=== PATIENT | female | born 1975 | race Caucasian/White ===

== ENCOUNTER 2017-12-03 09:47 | Outpatient (CLI) | payer MEDICAID, SELFPAY ==
[2017-12-03 10:44] LABS: Abs Immature Grans 0.02 k/cumm (0.0-0.09); Absolute Basophil Count 0.02 k/cumm (0.0-0.2); Absolute Eosinophil Count 0.42 k/cumm (0.0-0.7); Absolute Lymphocyte Count 1.51 k/cumm (1.2-3.4); Absolute Monocyte Count 0.43 k/cumm (0.11-0.7); Absolute Neutrophil Count 3.34 k/cumm (1.2-6.7); Basophils % 0.3; Eosinophils % 7.3; HCT 44.7 % (36.0-46.0); HGB 14.4 g/dL (12.0-15.5); Immature Grans % 0.3; Lymphocytes % 26.3; Mean Corp. HGB Concentration 32.2 g/dL (32.0-36.0); Mean Corpuscular Hemoglobin 29.4 pg (27.0-33.0); Mean Corpuscular Volume 91.4 fL (80-95); Mean Platelet Volume 11.4 fL (8.0-11.0); Monocytes % 7.5; Neutrophils % 58.3; Platelet Count 178 x1000/uL (130-400); RBC 4.89 m/cumm (4.00-5.20); RBC Distribution Width 14.1 % (11.7-14.6); White Blood Cell Count 5.74 k/cumm (4.4-10.8)
[2017-12-03 11:09] LABS: Iron 67 ug/dL (50-175); Total Iron Binding Capacity 318 ug/dL (250-450); Transferrin Sat 21 % (15-50)
[2017-12-03 11:11] LABS: ALT 36 U/L (12-78); AST 19 U/L (15-37); Albumin 3.4 g/dL (3.4-5.0); Alkaline Phosphatase 54 U/L (46-116); Anion Gap 5.2 mmol/L (3-11); BUN 16 mg/dL (7-18); Bilirubin, Total 1.1 mg/dL (0.2-1.0); CO2 29.8 mmol/L (21.0-32.0); CREATININE 0.92 mg/dL (0.55-1.02); Calcium 8.7 mg/dL (8.5-10.1); Chloride 104 mmol/L (98-107); Cholesterol 190 mg/dL (50-200); Ferritin 56 ng/mL (8-388); Glucose 93 mg/dL (70-100); HDL Cholesterol 53 mg/dL (40-60); LDL CHOLESTEROL 128 mg/dL (<100); Potassium 4.4 mmol/L (3.5-5.1); Sodium 139 mmol/L (136-145); T4 8.1 ug/dL (4.5-12.5); Total Protein 6.7 g/dL (6.4-8.2); Triglyceride 96 mg/dL (30-150)
== END 2017-12-03 10:07 ==
PROVIDERS: PCP Nurse Practitioner Family; Visit Provider Nurse Practitioner Family
DX: I10 Essential (primary) hypertension (principal); K74.60 Unspecified cirrhosis of liver; E03.9 Hypothyroidism, unspecified; E66.01 Morbid (severe) obesity due to excess calories
CPT/HCPCS: 36415; 80053; 80061; 83721; 82728; 83540; 83550; 84436; 84443; 85025

== ENCOUNTER 2017-12-25 11:37 | Emergency (ER) | payer MEDICAID, SELFPAY ==
[2017-12-25 11:47] VITALS: BP 146/105; PULSE 94; RESP 16; TEMP 36.8; O2SAT 97
[2017-12-25 12:21] LABS: Bilirubin Negative (Negative); Blood Large (Negative); Clarity Cloudy; Glucose Negative (Negative); Ketones Negative (Negative); Leukocyte Esterase Large (Negative); Nitrite Positive (Negative); Specific Gravity 1.025 (1.005-1.025); Urobilinogen 0.2 EU/dL (Up TO 0.2)
[2017-12-25 12:38] LABS: RBC >50 (0-2); WBC >50 HPF (0-5)
[2017-12-25 12:39] LABS: Bacteria Many HPF (Negative); C & S Indicated? Yes; Casts Negative LPF (Negative); Crystals Negative HPF (Negative); Epithelial Cells Negative HPF (Negative); Mucus Negative (Negative)
--- NOTE | 2017-12-25 14:33 | ED.GENADUL_ITS ---
Discharge Plan Disposition Patient Disposition: HOME Condition: Stable Discharge Details Chief Complaint: Urinary Clinical Impression: Urinary tract infection Primary Care Provider: Jasmine Mckinley ED Provider: Alfredito Phillips Home Meds and New Rx's Prescriptions: Continue acetaminophen 500 MG tablet 500 mg PO PRN PRNRF: 0 omeprazole 20 MG capsule,delayed release(DR/EC) 20 mg PO DAILY Qty: 90 RF: 3 venlafaxine 75 MG capsule,extended release 24hr 75 mg PO DAILY RF: 0 levothyroxine 125 MCG tablet 125 mcg PO DAILY Qty: 90 RF: 3 aripiprazole [Abilify] 5 MG tablet 5 mg PO DAILY RF: 0 Discharge Instructions Instructions: Urinary Tract Infection in Women (ED) Additional Instructions: Feel free to return to the emergency department for any new or rapidly worsening symptoms otherwise follow-up with your primary care provider if not improving towards the end of the antibiotics. You may continue to take acetaminophen as needed for discomfort. Referrals: Jasmine Mckinley [Primary Care Provider] - (as needed for reassessment) Discharge Data Discharge Date/Time-TO BE ENTERED AT DEPARTURE: 12/25/17 14:46 Medical Decision Making Patient presenting to the emergency department for chief complaint of UTI symptoms with flank pain for the past 3 days. Patient is afebrile and physical exam is otherwise unremarkable. staff psychologist initiated protocol for urinalysis which shows positive for UTI. Patient placed on Keflex 3 times daily for 7 days and Pyridium as needed for discomfort. Patient encouraged to return for any new or worsening signs or symptoms otherwise follow-up with primary care as needed Lab Data Lab results reviewed: Yes I reviewed the patient's lab results. HPI General Mode of arrival: ambulatory . Date/Time Provider Initiated Documentation: 12/25/17 11:52 . Limitations to Documentation: no limitations . Information obtained by: patient and RN notes reviewed . History of Present Illness 42 year old F presents to the emergency department with the chief complaint of UTI, described as moderate, with intensity rated at 4. Quality is described as aching, and is localized to the back. Patient started experiencing this day(s) (3) and it has been constant. No relieving factors improve symptom(s), Related Data Home Medications Medication Instructions Recorded Confirmed acetaminophen 500 mg PO PRN PRN 05/24/12 12/25/17 omeprazole 20 mg PO DAILY #90 tab-cap 06/23/16 12/25/17 venlafaxine 75 mg PO DAILY tab-cap 09/08/16 12/25/17 levothyroxine 125 mcg PO DAILY #90 tab-cap 09/22/16 12/25/17 aripiprazole [Abilify] 5 mg PO DAILY 10/08/16 12/25/17 Allergies Allergy/AdvReac Type Severity Reaction Status Date / Time ibuprofen AdvReac Unknown reacts w/ Unverified 12/25/17 11:53 antidepressant sulfamethoxazole AdvReac Unknown gi upset Unverified 12/25/17 11:53 [From Bactrim] trimethoprim [From Bactrim] AdvReac Unknown gi upset Unverified 12/25/17 11:53 tramadol AdvReac interfers Unverified 12/25/17 11:53 w/ effexor General Stated Complaint: Urinary HAL: 3 Review of Systems Constitutional Denies body ache(s), Denies chills, Denies fever(s), Denies malaise and Denies weakness Cardiovascular Denies chest pain Respiratory Reports system reviewed and no additional complaints, except as docu Gastrointestinal Denies abdominal pain, Reports nausea and Denies vomiting Genitourinary Reports as per HPI, Denies hematuria, Reports dysuria, Reports flank pain, Reports urinary urgency and Denies vaginal discharge Neurologic Denies confusion and Denies weakness Psychiatric Denies confusion PFSH Family History Mother Thyroid disorder Father No problems noted. Brother Mental disorder Brother No problems noted. Medical History Anxiety Biliary Cholic Depression Gluten intolerance Heartburn Hydradenitis Hypertension Hypothyroid Morbid obesity Sleep apnea Social History Smoking/Tobacco Use Status: Former Tobacco Use Surgical History Biopsy Duodenum (07/19/14) Cholecystectomy (09/13/14) Exam Const General: cooperative and no acute distress Orientation: alert, awake and oriented x3 Resp Effort & Inspection: normal respiratory effort and able to speak in complete sentences Auscultation: clear to auscultation bilaterally Cardio Rate: regular rate Rhythm: regular rhythm Heart Sounds: S1 normal and S2 normal GI Palpation: nontender Back/Spine/Pelvis Back: no CVA tenderness Neuro General: alert, awake and oriented x3 Extrem General: normal capillary refill Course Vital Signs Temperature 36.8 C 12/25/17 11:47 Pulse 94 H 12/25/17 11:47 Respiratory Rate 16 12/25/17 11:47 Blood Pressure 146/105 H 12/25/17 11:47 Pulse Oximetry 97 12/25/17 11:47 Temperature 36.8 C 12/25/17 11:47 Temperature Source Skin 12/25/17 11:47 Pulse 94 H 12/25/17 11:47 Respiratory Rate 16 12/25/17 11:47 Respiratory Effort Non-Labored 12/25/17 11:47 Blood Pressure 146/105 H 12/25/17 11:47 Blood Pressure Position Sitting 12/25/17 11:47 Pulse Oximetry 97 12/25/17 11:47 Oxygen Delivery Method Room Air 12/25/17 11:47 Oxygen Flow Rate 0 12/25/17 11:47 Lab/Test Results Lab/Test Results: 12/25/17 12:03 Urine - Reflex from Ua Urine Culture - Pending Laboratory Tests Range/Units 12/25/17 12:03 Urine Color (Yellow) [place] Urine Clarity Cloudy Urine pH (5-8) 7.0 Ur Specific [place] (1.005-1.025) 1.025 Urine Protein (Negative) mg/dL 100 H Urine Ketones (Negative) mg/dL Negative Urine Blood (Negative) Large H Urine Nitrite (Negative) Positive H Urine Bilirubin (Negative) Negative Urine Urobilinogen (Up TO 0.2) EU/dL 0.2 Ur Leukocyte Esterase (Negative) Large H Urine RBC (0-2) >50 H Urine WBC (0-5) HPF >50 Ur Epithelial Cells (Negative) HPF Negative Urine Crystals (Negative) HPF Negative Urine Bacteria (Negative) HPF Many Urine Casts (Negative) LPF Negative Urine Mucus (Negative) Negative Ur Culture Indicated? Yes Urine Glucose (Negative) mg/dL Negative
[2017-12-25 14:38] VITALS: BP 146/105; PULSE 94; RESP 16; TEMP 36.8; O2SAT 97
== END 2017-12-25 14:46 | disposition home or self-care (01) ==
PROVIDERS: Emergency Provider Nurse Practitioner Family; PCP Nurse Practitioner Family
DX: N39.0 Urinary tract infection, site not specified (principal); B96.20 Unspecified Escherichia coli [E. coli] as the cause of diseases classified elsewhere; I10 Essential (primary) hypertension
CPT/HCPCS: 87077; 99283; 81003; 81015; 87086; 87186

== ENCOUNTER 2018-04-28 10:44 | Emergency (ER) | payer MEDICAID, SELFPAY ==
--- NOTE | 2018-04-28 11:20 | NUR.NOTE ---
pt noticed that she had left shoulder pain 2-3 weeks ago and it hurts 5/10 when she moves it
[2018-04-28 11:21] VITALS: BP 133/87; PULSE 79; RESP 19; TEMP 37; O2SAT 98
--- NOTE | 2018-04-28 12:06 | ED.GENADUL_ITS ---
Discharge Plan Disposition Patient Disposition: HOME Condition: Stable Discharge Details Chief Complaint: Orthopedic Clinical Impression: Contusion of left shoulder, Left shoulder strain Primary Care Provider: Jasmine Mckinley ED Provider: Massiel Thompson Home Meds and New Rx's Prescriptions: Continued acetaminophen 500 MG tablet 500 mg PO PRN PRNRF: 0 omeprazole 20 MG capsule,delayed release(DR/EC) 20 mg PO DAILY Qty: 90 RF: 3 venlafaxine 75 MG capsule,extended release 24hr 75 mg PO DAILY RF: 0 levothyroxine 125 MCG tablet 125 mcg PO DAILY Qty: 90 RF: 3 aripiprazole [Abilify] 5 MG tablet 5 mg PO DAILY RF: 0 Discharge Instructions Instructions: Contusion in Adults (ED), Shoulder Sprain (ED) Additional Instructions: Rest and ice her left shoulder is much as possible. Take Tylenol and your muscle relaxer as needed and directed for pain. Follow-up with your primary care doctor in 1 week for reevaluation as needed. Follow-up with orthopedics if your pain persists or worsens. Return immediately to the emergency department any worsening or new concerning symptoms. Referrals: Rk Shabazz MD [ [facility] STAFF PHYSICIAN] - Discharge Data Discharge Date/Time-TO BE ENTERED AT DEPARTURE: 04/28/18 13:48 Discharge Physician: Massiel Thompson Medical Decision Making 42-year-old female presents with left clavicle and shoulder pain for the past 3 weeks after possible overuse injury at the gym, made worse after direct injury to shoulder after slip and fall on ice a few days ago. No relief with Tylenol or muscle relaxer. Cannot take Motrin or tramadol. Tenderness to palpation distal clavicle and left anterior shoulder. No deformity noted. Neurovascularly intact. No focal deficits. Suspect most likely contusion versus strain. Will obtain a clavicle and shoulder x-ray. History of tubal ligation and denies chance of . X-rays negative for acute findings or fracture. Patient instructed on the importance of rest, ice, alternating Tylenol and muscle relaxant. She is instructed to refrain from heavy exercising or lifting at the gym to allow her shoulder to rest. She is instructed on the importance of gentle range of motion exercises at the left shoulder to prevent adhesive capsulitis. Patient is instructed to follow-up with primary care doctor for reevaluation and return here at any time if worse. Medical Records Medical records reviewed: Yes I reviewed the patient's medical records. Imaging Data Radiologic Study: Radiologist's impression: LEFT CLAVICLE: No fracture is identified. The AC joint and glenohumeral joint are unremarkable. There is a smoothly marginated bony density at the coracoclavicular region, which appears chronic. IMPRESSION: Degenerative changes. No acute abnormality. LEFT SHOULDER: The axillary view is suboptimal in that the glenoid is not seen. There is mild spurring at the AC joint and inferior glenoid. No fracture or dislocation is seen. The visualized portions of left ribs appear intact. IMPRESSION: Mild degenerative changes. No acute abnormality. HPI General Mode of arrival: ambulatory . Date/Time Provider Initiated Documentation: 04/28/18 11:30 . Limitations to Documentation: no limitations . Information obtained by: patient . HPI Narrative: Patient is a 6-year-old female presents with left clavicle and shoulder pain for the past 3 weeks, worse since a fall a few days ago. Patient states she has been working out in the gym doing lifting and thinks she may have strained her shoulder with weights. She states her pain is been worse since a few days ago when she slipped and fell hitting her left shoulder on the ice. She states her pain radiates from her left shoulder around to her left scapula. She states she cannot take Motrin due to nausea and vomiting. She states she had no relief with Tylenol. She states she took a prescription muscle relaxer at home without relief. Related Data Home Medications Medication Instructions Recorded Confirmed acetaminophen 500 mg PO PRN PRN 05/24/12 04/28/18 omeprazole 20 mg PO DAILY #90 tab-cap 06/23/16 04/28/18 venlafaxine 75 mg PO DAILY tab-cap 09/08/16 04/28/18 levothyroxine 125 mcg PO DAILY #90 tab-cap 09/22/16 04/28/18 aripiprazole [Abilify] 5 mg PO DAILY 10/08/16 04/28/18 Allergies Allergy/AdvReac Type Severity Reaction Status Date / Time ibuprofen AdvReac Unknown reacts w/ Unverified 04/28/18 11:24 antidepressant sulfamethoxazole AdvReac Unknown gi upset Unverified 04/28/18 11:24 [From Bactrim] trimethoprim [From Bactrim] AdvReac Unknown gi upset Unverified 04/28/18 11:24 tramadol AdvReac interfers Unverified 04/28/18 11:24 w/ effexor General Stated Complaint: Orthopedic HAL: 5 Review of Systems Review of Systems All systems reviewed & are unremarkable except as noted in HPI and below PFSH Medical History Anxiety Biliary Cholic Depression Gluten intolerance Heartburn Hydradenitis Hypertension Hypothyroid Morbid obesity Sleep apnea Surgical History History of bilateral tubal ligation (Acute) Biopsy Duodenum (07/19/14) Cholecystectomy (09/13/14) Family History Mother Thyroid disorder Father No problems noted. Brother Mental disorder Brother No problems noted. Social History Smoking and Tabacco status: Former Tobacco Use alcohol intake: never substance use type: does not use Exam Const General: cooperative, healthy appearing and no acute distress HENMT Head: normal to inspection Mouth: oral mucosae normal Eyes General: appearance normal, both eyes and all related structures Neck Neck: normal visual inspection Resp Effort & Inspection: normal respiratory effort and able to speak in complete sentences Cardio Rate: regular rate Skin General skin exam: no rashes or lesions noted Neuro General: alert, awake, oriented x3, moves all extremities and no focal motor deficits Motor: muscle tone normal throughout and strength 5/5 throughout Sensory Exam: no sensory deficits noted Extrem Left upper extremity: shoulder/upper arm Details: inspection abnormal, tenderness Location: of the clavicle and of the A-C joint, axillary nerve sensory function normal and abnormal ROM Details: pain with active ROM Details: in ADduction, in ABduction, in extension and in flexion and pain with passive ROM Details: in ADduction, in ABduction, in extension and in flexion; no swelling, no lacerations, no ecchymosis, no crepitus and no deformity, elbow/ forearm Details: normal to inspection and normal ROM; no tenderness and no swelling, wrist Details: normal to inspection; no tenderness and no swelling and hand Details: vascular exam Details: radial pulse present and ulnar pulse present Psych Appearance: grossly normal Affect: normal affect Course Vital Signs Temperature 98.6 F 04/28/18 11:21 Pulse 79 04/28/18 11:21 Respiratory Rate 04/28/18 11:21 Blood Pressure 133/87 04/28/18 11:21 Pulse Oximetry 98 04/28/18 11:21 Temperature 98.6 F 04/28/18 11:21 Temperature Source Skin 04/28/18 11:21 Pulse 79 04/28/18 11:21 Respiratory Rate 04/28/18 11:21 Blood Pressure 133/87 04/28/18 11:21 Pulse Oximetry 98 04/28/18 11:21 Oxygen Delivery Method Room Air 04/28/18 11:21 Oxygen Flow Rate 0 04/28/18 11:21 Pain Level 2 04/28/18 11:21
== END 2018-04-28 13:48 | disposition home or self-care (01) ==
PROVIDERS: Emergency Provider Physician Assistant; PCP Nurse Practitioner Family
DX: M25.512 Pain in left shoulder (principal); S40.012A Contusion of left shoulder, initial encounter; S46.912A Strain of unspecified muscle, fascia and tendon at shoulder and upper arm level, left arm, initial encounter; W00.0XXA Fall on same level due to ice and snow, initial encounter; I10 Essential (primary) hypertension
CPT/HCPCS: 99284; 73000; 73030

== ENCOUNTER 2018-11-25 10:46 | Outpatient (CLI) | payer MEDICAID, SELFPAY ==
[2018-11-25 12:39] LABS: ALT 24 U/L (14-59); AST 10 U/L (15-37); Albumin 3.6 g/dL (3.4-5.0); Alkaline Phosphatase 53 U/L (46-116); Anion Gap 5.7 mmol/L (3-11); BUN 14 mg/dL (7-18); Bilirubin, Total 0.8 mg/dL (0.2-1.0); CO2 27.3 mmol/L (21.0-32.0); CREATININE 0.78 mg/dL (0.55-1.02); Calcium 9.3 mg/dL (8.5-10.1); Chloride 105 mmol/L (98-107); Glucose 96 mg/dL (70-100); Potassium 4.3 mmol/L (3.5-5.1); Sodium 138 mmol/L (136-145); TSH 0.11 uIU/mL (0.36-3.74); Total Protein 7.1 g/dL (6.4-8.2)
== END 2018-11-25 11:06 ==
PROVIDERS: PCP Nurse Practitioner Family; Visit Provider Nurse Practitioner Family
DX: K21.9 Gastro-esophageal reflux disease without esophagitis (principal)
CPT/HCPCS: 36415; 80053; 84443

== ENCOUNTER 2019-10-28 03:16 | Outpatient (CLI) | payer MEDICAID, SELFPAY ==
--- NOTE | 2019-10-28 | DI.US_ITS ---
EXAM: US ABDOMEN CLINICAL HISTORY: F/U CIRRHOSIS OF LIVER, K74.60 TECHNIQUE: Ultrasound performed using standard protocol. COMPARISON: US ABDOMEN ULTRASOUND (P) from 03/18/2017 FINDINGS: The liver is enlarged and shows increased parenchymal echogenicity, dependent portions of the liver a re nonvisualized. Findings are consistent with hepatic steatosis. The patient has had a prior cholecystectomy. No biliary dilatation seen. Pancreas appears intact as visualized although incompletely seen. Spleen is unremarkable in appearance as visualized. Kidneys appear intact with no evidence of a edson l mass, hydronephrosis, or nephrolithiasis. Abdominal aorta and IVC are of diameter. IMPRESSION: Technically limited examination, hepatic steatosis without focal hepatic abnormality. DATA REPOSITORY:
== END 2019-10-28 03:36 ==
PROVIDERS: PCP Nurse Practitioner Family; Visit Provider Nurse Practitioner Family
DX: K74.60 Unspecified cirrhosis of liver (principal); K76.0 Fatty (change of) liver, not elsewhere classified
CPT/HCPCS: 76700

== ENCOUNTER 2020-04-09 11:10 | Emergency (ER) | payer MEDICAID, SELFPAY ==
[2020-04-09 11:19] VITALS: BP 168/93; PULSE 83; RESP 16; TEMP 36.9; O2SAT 97
--- NOTE | 2020-04-09 11:36 | ED.GENADUL_ITS ---
Discharge Plan Disposition Patient Disposition: HOME Condition: Stable Discharge Details Clinical Impression: Ankle sprain Primary Care Provider: Carley Red ED Provider: Luz Maria Martin Home Meds and New Rx's Prescriptions: No Action acetaminophen 500 MG tablet 500 mg PO PRN PRNRF: 0 omeprazole 20 MG capsule,delayed release(DR/EC) 40 mg PO DAILY Qty: 90 RF: 3 venlafaxine 75 MG capsule,extended release 24hr 75 mg PO DAILY RF: 0 levothyroxine 125 MCG tablet 125 mcg PO DAILY Qty: 90 RF: 3 buspirone 30 mg tablet 30 mg PO BID RF: 0 dextroamphetamine-amphetamine 15 mg tablet 15 mg PO TID RF: 0 gabapentin 100 mg capsule 100 mg PO DAILY RF: 0 Discharge Instructions Instructions: Ankle Sprain (ED) Additional Instructions: Rest, ice, compression, elevation. Use a splint for comfort. Please take Tylenol or Ibuprofen with food every 4-6 hours as needed for pain and swelling. Follow up with primary care provider in 3-5 days. Return to ED sooner if any worsening or concerns. Increase oral fluids. Referrals: Carley Red [Primary Care Provider] - Medical Decision Making 44-year-old female presents to the ED with chief complaint of right ankle pain after an inversion type injury just prior to arrival. Patient states that she slipped on the ice and stepped into a hole turning her ankle outwards. She did not fall to the ground. She no states that she is having pain with ambulation was able to ambulate with a limp upon arrival. She is reporting medial malleolus tenderness with radiation up into her leg. On initial exam there is no obvious deformity, mild amount of swelling, dorsal pedal pulses intact, cap refill less than 2 seconds. No other injuries noted. She did not take any medications prior to arrival. She does have a past medical history of anxiety, depression, hypertension, hypothyroidism, morbid obesity. FINDINGS: BONES: No acute fracture is present. No bony destructive lesion is seen. Well corticated osseous densities are again seen adjacent to the medial malleolus consistent with old injury. These were present on the x-ray from 06/16/2015. JOINTS: The ankle mortise is normally aligned. SOFT TISSUE: Soft tissue swelling about the ankle is present. IMPRESSION: No acute fracture or dislocation. Discussed x-ray results with patient who verbalized understanding. Instructed on RICE procedures and home care. Patient was given a lace up ankle splint prior to discharge. HPI General Mode of arrival: ambulatory . Date/Time Provider Initiated Documentation: 04/09/20 11:21 . Limitations to Documentation: no limitations . Information obtained by: patient . HPI Narrative: 44-year-old female presents to the ED with chief complaint of right ankle pain after an inversion type injury just prior to arrival. Patient states that she slipped on the ice and stepped into a hole turning her ankle outwards. She did not fall to the ground. She no states that she is having pain with ambulation was able to ambulate with a limp upon arrival. She is reporting medial malleolus tenderness with radiation up into her leg. On initial exam there is no obvious deformity, mild amount of swelling, dorsal pedal pulses intact, cap refill less than 2 seconds. No other injuries noted. She did not take any medications prior to arrival. She does have a past medical history of anxiety, depression, hypertension, hypothyroidism, morbid obesity. Related Data Home Medications Medication Instructions Recorded Confirmed acetaminophen 500 mg PO PRN PRN 05/24/12 04/09/20 omeprazole 40 mg PO DAILY #90 tab-cap 06/23/16 04/09/20 venlafaxine 75 mg PO DAILY tab-cap 09/08/16 04/09/20 levothyroxine 125 mcg PO DAILY #90 tab-cap 09/22/16 04/09/20 buspirone 30 mg PO BID 04/09/20 04/09/20 dextroamphetamine-amphetamine 15 mg PO TID 04/09/20 04/09/20 gabapentin 100 mg PO DAILY 04/09/20 04/09/20 Allergies Allergy/AdvReac Type Severity Reaction Status Date / Time ibuprofen AdvReac Unknown reacts w/ Unverified 04/09/20 11:22 antidepressant sulfamethoxazole AdvReac Unknown gi upset Unverified 04/09/20 11:22 [From Bactrim] trimethoprim [From Bactrim] AdvReac Unknown gi upset Unverified 04/09/20 11:22 tramadol AdvReac interfers Unverified 04/09/20 11:22 w/ effexor General Stated Complaint: Orthopedic HAL: 4 Review of Systems All systems reviewed & are unremarkable except as noted in HPI and below Musculoskeletal Musculoskeletal: Reports as per HPI, Reports arthralgias and Reports limited range of motion [facility] Medical History Anxiety Biliary Cholic Depression Gluten intolerance Heartburn Hydradenitis Hypertension Hypothyroid Morbid obesity Sleep apnea Surgical History Biopsy Duodenum (07/19/14) Dr. Crenshaw Cholecystectomy (09/13/14) Laparoscopic Dr. Crenshaw [facility] History of bilateral tubal ligation Family History Mother Thyroid disorder Father No problems noted. Brother , Suicide at age 35. Mental disorder Suicide Brother No problems noted. Social History Smoking/Tobacco Use Status: Current every day Smoking risk assessment performed?: Yes Alcohol Intake: never Drug use: Daily Substance use type: does not use and marijuana Do you feel safe in your relationship?: Yes Exam Narrative Exam Narrative: Constitutional: Alert and oriented x3. Appears stated age. Obese body habitus. Head: Normocephalic, no trauma. Eyes: Eyelids symmetrical without lesions, discharge, or swelling. Chest: RRR, Normal S1, S2, distal pulses intact. Resp: Lungs clear to auscultation bilaterally, no wheezes, rales, or rhonchi. Musculoskeletal: Limping gait, right medial malleolus tenderness with palpation. No obvious deformity, no crepitus. Dorsal pedal pulses intact, cap refill less than 2 seconds. Foot is pink warm dry. Skin: No suspicious rashes or lesions. Capillary refill less than 2 sec. Neurologic: Cranial nerves II-XII intact. Alert and oriented x 3. DTR's intact. Hematologic/Lymphatic: No ecchymosis, no lymphadenopathy. Course Vital Signs Vital signs: Vital Signs Temperature 36.9 C 04/09/20 11:19 Pulse 83 04/09/20 11:19 Respiratory Rate 16 04/09/20 11:19 Blood Pressure 168/93 H 04/09/20 11:19 Pulse Oximetry 97 04/09/20 11:19 Temperature 36.9 C 04/09/20 11:19 Temperature Source Skin 04/09/20 11:19 Pulse 83 04/09/20 11:19 Respiratory Rate 16 04/09/20 11:19 Respiratory Effort Non-Labored 04/09/20 11:19 Blood Pressure 168/93 H 04/09/20 11:19 Blood Pressure Position Sitting 04/09/20 11:19 Pulse Oximetry 97 04/09/20 11:19 Oxygen Delivery Method Room Air 04/09/20 11:19 Oxygen Flow Rate 0 04/09/20 11:19 Pain Level 7 04/09/20 11:25
[2020-04-09] MEDS: Acetaminophen 500 MG TAB PO (11:37)
--- NOTE | 2020-04-09 11:51 | DI.RAD_ITS ---
EXAM: XR ANKLE RT COMPLETE CLINICAL HISTORY: R/O fracture. TECHNIQUE: 2D digital imaging was performed. COMPARISON: CR RIGHT ANKLE COMPLETE from 06/16/2015 FINDINGS: BONES: No acute fracture is present. No bony destructive lesion is seen. Well corticated osseous den sities are again seen adjacent to the medial malleolus consistent with old injury. These were presen t on the x-ray from 06/16/2015. JOINTS: The ankle mortise is normally aligned. SOFT TISSUE: Soft tissue swelling about the ankle is present. IMPRESSION: No acute fracture or dislocation. DATA REPOSITORY: RADIATION DOSE DELIVERED:
== END 2020-04-09 13:20 | disposition home or self-care (01) ==
PROVIDERS: Emergency Provider Registered Nurse Emergency; PCP Nurse Practitioner Family
DX: S93.491A Sprain of other ligament of right ankle, initial encounter (principal); W00.0XXA Fall on same level due to ice and snow, initial encounter; X50.9XXA Other and unspecified overexertion or strenuous movements or postures, initial encounter
CPT/HCPCS: 29515; 99283; 73610

== ENCOUNTER 2020-05-03 03:06 | Outpatient (CLI) | payer MEDICAID, SELFPAY ==
--- NOTE | 2020-05-03 13:00 | NS.NUTBLAN_ITS ---
Regla was referred to Medical Nutrition Therapy for prediabetes and fatty liver. 5'4 297 lbs, BMI 51. Regla reports 80 lbs weight gain in last year due to covid restrictions. She reports recently stopping Abilify that appeared to encourage weight gain. She reports smoking cannibas daily which also causes increased hunger. She has insomnia and sleeps most of day, reports lower back pain limiting physical exercise. Regla is not interested in wieght loss surgery. Diet recall indicates high intakes of soda (root beer) and 1 meal daily for dinner with children. Educated Regla on importance of eating 3-5 times daily, limiting simple carbs and increasing lean protein, non starchy vegetables and fruits. Encouraged exercise as able with focus of 10% weight loss to improve liver function and insulin sensitivity. She was receptive to information. Provided educational materials and contact information for follow up. No follow up appt. scheduled at this time.
== END 2020-05-03 03:07 | disposition home or self-care (01) ==
LOC: DS 03:07
PROVIDERS: PCP Nurse Practitioner Family; Visit Provider Dietitian, Registered
DX: R73.03 Prediabetes (principal); K76.0 Fatty (change of) liver, not elsewhere classified; Z71.3 Dietary counseling and surveillance
CPT/HCPCS: 97802

== ENCOUNTER 2020-08-26 16:31 | Emergency (ER) | payer MEDICAID, SELFPAY ==
[2020-08-26 16:33] VITALS: BP 159/100; PULSE 92; RESP 20; TEMP 36.8; O2SAT 97
--- OUTSIDE RECORDS SUMMARY | 2020-08-26 16:42 | XMS_ITS ---
:1975 Author Care Team Providers Name Role Phone REBECCA ORTIZ TRAFFIC MANAGER - DIRECT Primary Care Provider [phone] Allergies Code Code System Name Reaction Severity Status Onset 5640 RxNorm Ibuprofen ? ? Active ? 46227 RxNorm Mirtazapine ? ? Active ? 26600 RxNorm Sulfabenzamide ? ? Active ? 87976 RxNorm Tramadol ? ? Active ? 20135 RxNorm Trimethoprim ? ? Active ? Medications Name Status Start Date Stop Date ? ? Adderall 15 mg tablet Active ? Not availa ble Take 1 tablet 3 times a day by oral route. aripiprazole Active ? Not available 5 mg daily buspirone 30 mg tablet Active ? Not avail able Take 1 tablet 3 times a day by oral route. levothyroxine Active ? Not available .125 mg 1 daily prazosin 1 mg capsule Active ? Not availa ble Take 1 capsule twice a day by oral route. venlafaxine 75 mg tablet Active ? Not luh ilable Take 1 tablet every day by oral route. Problems Name Status Onset Date Source ? Psychophysiologic Insomnia Active 10/06/2019 ? Hypersomnia Active ? History Obstructive Sleep Apnea Syndrome Active ? History Procedures None recorded. Results Lab Results None recorded. Past Encounters 10/06/2019 Obstructive Sleep Apnea Syndrome; Psycho physiologic Insomnia Mary Jo Schulte STORYBOARD ARTIST: [address] [place] [phone], Ph. Social History Tobacco Smoking Status Heavy Tobacco Smoker (1/2 PPD) Vaccine List None recorded. Plan of Care Reminders Provider Appointments None ? ? recorded. Lab None ? ? recorded. Referral None ? ? recorded. Procedures None ? ? recorded. Surgeries None ? ? recorded. Imaging None ? ? recorded. Vitals 10/06/2019 01:30PM Office 30 Height Weight BMI Blood Pressure 165.1 cm 142.16 kg 52.2 kg/m2 127/90 mm[Hg] 06/23/2017 Height Weight 165.1 cm 158.3 kg 06/23/2017 Blood Pressure 122/72 mm[Hg] 05/05/2017 Blood Pressure 116/76 mm[Hg] 05/05/2017 Height Weight 165.1 cm 161.48 kg 12/02/2016 Height Weight 165.1 cm 148.32 kg 12/02/2016 Blood Pressure 120/90 mm[Hg] 09/22/2016 Blood Pressure 142/80 mm[Hg] 09/22/2016 Height Weight 165.1 cm 137.89 kg
--- NOTE | 2020-08-26 17:04 | W.ED.GENAD ---
Discharge Plan Disposition Patient Disposition: HOME Condition: Good Discharge Details Clinical Impression: H/O pilonidal cyst Primary Care Provider: Carley Red ED Provider: Sherrie Babcock Home Meds and New Rx's Prescriptions: New clindamycin HCl 300 mg capsule 300 mg PO QID Qty: 28 RF: 0 No Action acetaminophen 500 MG tablet 500 mg PO PRN PRNRF: 0 omeprazole 20 MG capsule,delayed release(DR/EC) 40 mg PO DAILY Qty: 90 RF: 3 venlafaxine 75 MG capsule,extended release 24hr 75 mg PO DAILY RF: 0 levothyroxine 125 MCG tablet 125 mcg PO DAILY Qty: 90 RF: 3 buspirone 30 mg tablet 30 mg PO BID RF: 0 dextroamphetamine-amphetamine 15 mg tablet 15 mg PO TID RF: 0 lamotrigine 100 mg tablet 100 mg PO HS RF: 0 Discharge Instructions Additional Instructions: Take antibiotics until completed Ibuprofen and Tylenol for pain blood pressure recheck by her primary care physician Return earlier should you have new or worsening complaints including spreading redness, fever, worsening pain, you may have overlying the area of drainage Medical Decision Making Patient appears well, she is afebrile, nontoxic, she will be placed on clindamycin and encouraged to follow-up with her surgeon on Thursday There is no indication for additional intervention at this time She given the threshold to return should she have new or worsening complaints and discharged home in stable condition with stable vitals I did review her records from [facility] indicating that she had a pilonidal cyst drained on 16 August that did not result in any acute complication Differential Diagnosis Differential Diagnosis: Postoperative complications, cellulitis, pilonidal cyst, Medical Records Medical records reviewed: Yes I reviewed the patient's medical records. HPI General Mode of arrival: ambulatory. Date/Time Provider Initiated Documentation: 08/26/20 16:37. Limitations to Documentation: no limitations. Information obtained by: patient. HPI Narrative: This 44-year-old female with history of anxiety and depression presents status post pilonidal cyst drainage on 16 August by a surgeon and with [facility]. She states that she presents now as she felt some drainage and redness to the site. She denies any abdominal pain, or any additional complaints at this time. Denies fever or chills. Related Data Home Medications Medication Instructions Recorded Confirmed acetaminophen 500 mg PO PRN PRN 05/24/12 08/26/20 omeprazole 40 mg PO DAILY #90 tab-cap 06/23/16 08/26/20 venlafaxine 75 mg PO DAILY tab-cap 09/08/16 08/26/20 levothyroxine 125 mcg PO DAILY #90 tab-cap 09/22/16 08/26/20 buspirone 30 mg PO BID 04/09/20 08/26/20 dextroamphetamine-amphetamine 15 mg PO TID 04/09/20 08/26/20 clindamycin HCl 300 mg PO QID #28 cap 08/26/20 lamotrigine 100 mg PO HS 08/26/20 08/26/20 Previous Rx's Medication Instructions Recorded clindamycin HCl 300 mg PO QID #28 cap 08/26/20 Allergies Allergy/AdvReac Type Severity Reaction Status Date / Time ibuprofen AdvReac Unknown reacts w/ Unverified 08/26/20 16:37 antidepressant sulfamethoxazole AdvReac Unknown gi upset Unverified 08/26/20 16:37 [From Bactrim] trimethoprim [From Bactrim] AdvReac Unknown gi upset Unverified 08/26/20 16:37 tramadol AdvReac interfers Unverified 08/26/20 16:37 w/ effexor General Stated Complaint: Cellulitis HAL: 4 Review of Systems Narrative: Review of systems obtained x7 aside from where indicated in HPI [facility] Medical History Anxiety Biliary Cholic Depression Gluten intolerance Heartburn Hydradenitis Hypertension Hypothyroid Morbid obesity Sleep apnea Surgical History Biopsy Duodenum (07/19/14) Dr. Crenshaw Cholecystectomy (09/13/14) Laparoscopic Dr. Crenshaw [facility] History of bilateral tubal ligation Family History Mother Thyroid disorder Father No problems noted. Brother , Suicide at age 35. Mental disorder Suicide Brother No problems noted. Social History Smoking/Tobacco Use Status: Former Tobacco Use Smoking risk assessment performed?: Yes Alcohol Intake: never Drug use: Daily Substance use type: marijuana Do you feel safe at home: Yes Do you feel safe in your relationship?: Yes Exam Const General: healthy appearing and no acute distress GI Other: No abdominal tenderness Skin Other: 3 cm incision noted to right glutes, mild surrounding erythema approximately 3 mm, scant drainage, no crepitus, Course Vital Signs Vital signs: Vital Signs Temperature 36.8 C 08/26/20 16:33 Pulse 92 H 08/26/20 16:33 Respiratory Rate 20 08/26/20 16:33 Blood Pressure 159/100 H 08/26/20 16:33 Pulse Oximetry 97 08/26/20 16:33 Temperature 36.8 C 08/26/20 16:33 Temperature Source Skin 08/26/20 16:33 Pulse 92 H 08/26/20 16:33 Respiratory Rate 20 08/26/20 16:33 Respiratory Effort Non-Labored 08/26/20 16:39 Blood Pressure 159/100 H 08/26/20 16:33 Blood Pressure Position Sitting 08/26/20 16:33 Pulse Oximetry 97 08/26/20 16:33 Oxygen Delivery Method Room Air 08/26/20 16:33 Oxygen Flow Rate 0 08/26/20 16:33 Pain Level 6 08/26/20 16:33
[2020-08-26] MEDS: Clindamycin 300 MG CAP PO (17:16)
== END 2020-08-26 17:55 | disposition home or self-care (01) ==
PROVIDERS: Emergency Provider Physician Assistant; PCP Nurse Practitioner Family
DX: T81.41XA Infection following a procedure, superficial incisional surgical site, initial encounter (principal); Y83.8 Other surgical procedures as the cause of abnormal reaction of the patient, or of later complication, without mention of misadventure at the time of the procedure; L05.91 Pilonidal cyst without abscess
CPT/HCPCS: 99283

== ENCOUNTER 2020-10-17 09:03 | Day surgery (SDC) | payer MEDICAID, SELFPAY ==
--- NOTE | 2020-10-17 08:10 | W.PM.DSUDISC ---
Discharge Plan Disposition Patient Disposition: HOME Condition: Good Discharge Details Reason For Visit: R ECTR Attending Provider: Florencio Contreras Primary Care Provider: Carley Red Home Meds and New Rx's Prescriptions: New acetaminophen 500 mg capsule 1,000 mg PO Q8H PRN PRNQty: 90 RF: 0 hydrocodone-acetaminophen 5-325 mg tablet 1 tab PO Q6H PRN (Reason: pain) Qty: 6 RF: 0 Continued acetaminophen 500 MG tablet 500 mg PO PRN PRNRF: 0 omeprazole 20 MG capsule,delayed release(DR/EC) 40 mg PO DAILY Qty: 90 RF: 3 venlafaxine 75 MG capsule,extended release 24hr 75 mg PO DAILY RF: 0 levothyroxine 125 MCG tablet 125 mcg PO DAILY Qty: 90 RF: 3 buspirone 30 mg tablet 30 mg PO BID RF: 0 dextroamphetamine-amphetamine 15 mg tablet 15 mg PO TID RF: 0 topiramate [Topamax] 25 mg tablet 25 mg PO BID RF: 0 lamotrigine 100 mg tablet 100 mg PO HS RF: 0 Discharge Instructions Stand Alone Forms: Diane Tate Tunnel Release Referrals: Florencio Contreras MD [ [facility] STAFF PHYSICIAN] - Activity:: Activity as Tolerated Remove Dressings/Wound Care:: 48 hours Shower/Bathe:: 48 hours Diet:: As Tolerated Discharge Orders Discharge Orders: Discharge Order (Routine); Ordered 10/17/20 Ordered By: Hieu Holloway DS: Diagnosis Discharge Diagnosis (1) Right carpal tunnel syndrome: Status: Acute
[2020-10-17 09:11] VITALS: BP 142/95; PULSE 83; RESP 16; TEMP 36.5; O2SAT 98
--- NOTE | 2020-10-17 09:30 | W.ANESPRE ---
General Info Date of Service Date Performed: 10/17/20 Height: 5 ft 4.96 in Weight: 156.3 kg Body Mass Index (BMI): 57.4 Surgical Procedure: Operation Date: 10/17/20 09:25 Proposed Procedures Side Surgeon p Wrist ECTR Right Florencio Contreras MD Meds Allergies and Home Medications Allergies Allergy/AdvReac Type Severity Reaction Status Date / Time sulfamethoxazole AdvReac Unknown gi upset Verified 10/17/20 09:29 [From Bactrim] trimethoprim [From Bactrim] AdvReac Unknown gi upset Verified 10/17/20 09:29 tramadol AdvReac interfers Verified 10/17/20 09:29 w/ effexor Home Medication Medication Instructions Recorded omeprazole 40 mg PO DAILY #90 tab-cap 06/23/16 venlafaxine 75 mg PO DAILY tab-cap 09/08/16 levothyroxine 125 mcg PO DAILY #90 tab-cap 09/22/16 buspirone 30 mg PO BID 04/09/20 dextroamphetamine-amphetamine 15 mg PO TID 04/09/20 lamotrigine 100 mg PO HS 08/26/20 topiramate [Topamax] 25 mg PO BID 10/15/20 acetaminophen 1,000 mg PO Q8H PRN PRN #90 cap 10/17/20 ibuprofen 600 mg PO TID PRN #30 tab 10/17/20 Current Visit Medications: Current Medications Generic Name Dose Route Start Last Admin Trade Name Freq PRN Reason Stop Dose Admin Acetaminophen 650 mg 10/17/20 08:08 Acetaminophen 325 Mg Tab PO Q4H PRN PRN Hydrocodone Bitart/Acetaminophen 0 tab 10/17/20 08:08 Hydrocodone 5/Acetaminophen 325 Tab PO Q3H PRN PRN Pain Ringer's Solution 1,000 mls @ 80 mls/hr 10/17/20 06:00 IV 11/15/20 23:59 INFUSION MELODIE IV Miscellaneous Supplies 1 each 10/17/20 06:00 Iv Access IV 11/15/20 23:59 DIRECTED MELODIE Sodium Chloride 0 ml 10/17/20 06:00 Normal Saline Flush 10 Ml Syr IV 11/15/20 23:59 PRN PRN Sodium Chloride 0 ml 10/17/20 06:00 Normal Saline 10 Ml Vial IJ 11/15/20 23:59 DIRECTED PRN Sterile Water 0 ml 10/17/20 06:00 Water,Injection,Sterile 10 Ml Vial IJ 11/15/20 23:59 DIRECTED PRN PFSH Active Problems Active Problems: Problem Status Onset Code Ankle sprain S93.409A H/O pilonidal cyst Z87.2 Left carpal tunnel syndrome G56.02 Right carpal tunnel syndrome G56.01 Medical History Medical History Abscess, perianal with surgical intervention Adjustment disorder, unspecified (07/29/16) Anxiety Biliary Cholic Depression Gluten intolerance Heartburn Hydradenitis Hypertension Hypothyroid Left carpal tunnel syndrome Migraine (04/11/11) Morbid obesity Nicotine dependence (12/19/13) Quit 11/2013 cold turkey (made her stomach hurt and +headaches) Obstructive sleep apnea syndrome (04/29/11) MILD. Sleep Study 2010 CPAP Other chronic pain (10/08/16) Patellar tendonitis (04/11/11) PTSD (post-traumatic stress disorder) Sleep apnea Surgical History Surgical History Biopsy Duodenum (07/19/14) Dr. Crenshaw Cholecystectomy (09/13/14) Laparoscopic Dr. Crenshaw [facility] History of Achilles tendon repair History of bilateral tubal ligation History of removal of cyst per patient removed from right side of her head History of surgical removal of ganglion cyst Right carpal tunnel syndrome S/P R ECTR: 10/17/2020 Tobacco Smoking/Tobacco Use Status: Former Tobacco Use Alcohol Alcohol Intake: never Substance Use Substance use: Daily Substance use type: marijuana Details: Per patient smoked marijuana at 2030 last night. Vital Signs and Lab Results Vital Signs Most Recent Vital Signs in EMR: Most Recent Vital Signs Temp Pulse Resp BP Pulse Ox 36.5 C 83 16 142/95 H 98 10/17/20 09:11 10/17/20 09:11 10/17/20 09:11 10/17/20 09:11 10/17/20 09:11 Lab Results Blood Type / Crossmatch: No Data to Display Complete Blood Count: No Data to Display Complete Metabolic Panel: No Data to Display Liver Function Panel: No Data to Display Coagulation Panel: No Data to Display Cardiac Panel: No Data to Display Arterial Blood Gas: No Data to Display Venous Blood Gas: No Data to Display Pancreas Panel: No Data to Display Thyroid Panel: No Data to Display Infectious Disease: No Data to Display Blood Cultures: No Data to Display Toxicology Panel: No Data to Display Panel: No Data to Display Anesthesia Assessment and Plan Anesthesia History Personal History: No History of Anesthesia Complications Family History: No Family History of Anesthesia Complications Exercise Tolerance Exercise Tolerance: Metabolic Equivalents>4 Cardiac & Pulmonary Exam Cardiac Exam: Normal S1/S2 Heart Sounds Pulmonary Exam: Clear Bilateral Breath Sounds Airway Exam Known Difficult Airway: No Mallampati Class: 2 Mouth Opening: Normal (> 3cm) Thyromental Distance: Greater than 3 cm Neck Range of Motion: Full ROM Neck Circumference: Thick Teeth Condition: Normal Dentition ASA Classification ASA Score: ASA 3 Emergency Case?: No NPO Status NPO Status: NPO Clears >2 hours, Solids >8 hours Status Status: Negative HCG Anesthesia Plan Resuscitation Status: Full Code Anesthesia Technique: MAC Anesthesia Airway Planned: Natural Airway Monitors Used: Standard Monitors Preoperative Comments:: 45 yo female for ECTR. hx hypothyroid (on levothyroxine), BMI 57, hypertension, gerd ( on omeprazole).
[2020-10-17] MEDS: Lactated Ringers 1,000 ML 80 ML IV (09:41)
[2020-10-17 10:00] VITALS: BMI 57.4
[2020-10-17] MEDS: Sodium Bicarbonate 50 MEQ/50 ML VIAL (10:26)
[2020-10-17 10:39] VITALS: BP 116/72; PULSE 103; RESP 18; TEMP 36.1; O2SAT 96
--- NOTE | 2020-10-17 10:51 | W.ANESPOSTOP ---
Postoperative Evaluation Date, Time and Location Date Performed: 10/17/20 Time Performed: 10:51 Patient Location: Day Surgery Unit Vital Signs Most Recent Imported Vital Signs: Most Recent Vital Signs Temp Pulse Resp BP Pulse Ox 36.1 C L 103 H 18 116/72 96 10/17/20 10:39 10/17/20 10:39 10/17/20 10:39 10/17/20 10:39 10/17/20 10:39 Pain Score Most Recent Pain Score: Most Recent Pain Score Pain Level 0 10/17/20 10:39 Assessment Mental Status: Awake (Alert & Oriented to Patient Baseline) Airway and Respiratory Function: Patent airway with normal (patient baseline) respiratory exam Cardiovascular Function: Hemodynamically Stable Hydration Status: Adequately Hydrated Nausea & Vomiting: No Nausea or Vomiting Pain: Pt. Denies Any Pain Peripheral Nerve Block: Patient did not receive a nerve block
[2020-10-17 11:07] VITALS: BP 125/84; PULSE 75; RESP 17; TEMP 36.2; O2SAT 98
--- NOTE | 2020-10-17 12:10 | ROE_ITS ---
Date of service: 10/17/20 Time of Service: 11:10 Operative Note Operative Note DATE OF PROCEDURE: 10/17/20 PRE-OP DIAGNOSIS: Right Carpal Tunnel Syndrome POST-OP DIAGNOSIS: same PROCEDURE: Right Endoscopic Carpal Tunnel Release SURGEON: Florencio Contreras ANESTHESIA TYPE: General:No Airway Refer to Anesthesia Record ESTIMATED BLOOD LOSS: 0 PATHOLOGY: none sent TOURNIQUET TIME: 5 COMPLICATIONS: None Patient was transported to: same day Patient's condition: stable Indications: I have seen Regla in clinic for symptoms of carpal tunnel syndrome. The numbness, tingling, and pain limited function. Clinical exam findings with nerve conduction tests confirmed the diagnosis of carpal tunnel syndrome. Nonoperative measures such as bracing, time, activity modifications had been tried but disability and pain persisted. I discussed carpal tunnel release with the patient. I reviewed the risks of the procedure to include, but not limited to, bleeding, infection, pain, stiffness, incomplete release, damage to nerves or vessels, persistent numbness, recurrence. Despite these risks, the patient elected to proceed. Findings: There was tightened carpal tunnel. This was dilated and released successfully with the endoscopic with increased space within the tunnel. The an tebrachial fascia was released proximally freeing the median nerve at the wrist. Procedure Description: Regla was greeted in the preoperative holding area where the correct side was identified and marked. The consent was reviewed with the patient and signed. The history and physical was updated. All questions were answered. She was taken back to the operating room. The patient was placed into the supine position on the operating room table with the right arm on an arm board. A nonsterile tourniquet was placed high onto the arm. All bony prominences were well padded. Prophylactic antibiotics in the form of Cefazolin were administered. The right arm was then prepped with Chloraprep and draped in a standard fashion with stockinette and extremity drape. A timeout to confirm correct identity, side and site, procedure, allergies, anesthesia, and medical concerns was performed. The surgical site was marked in the volar wrist creases in line with the radial border of the fourth ray. This area was anesthetized with approximately 6cc of 1% Lidocaine. The limb was then exsanguinated with an Esmarch. The skin was incised with a 15 blade, approximately 1cm. The skin only was cut and the deeper tissue was dissected bluntly with a tenotomy scissor, avoiding passing nerve and venous structures. The fascia was penetrated and opened bluntly. A two-prong skin hook was placed under this proximal fascial edge. A series of hamate finders were used to identify and dilate the carpal tunnel. Synovial elevator was used to free synovial attachments to the underside of the transverse carpal ligament. My thumb was kept in the palm to boogie the distal extent of the carpal tunnel and correctly position the hand. The Microaire endoscope was inserted without difficulty and without resistance. Excellent visualization showed horizontally running fibers of the transverse carpal ligament (TCL). The distal extent of the TCL was visualized and the end of the scope palpated with the thumb. The blade was elevated and withdrawn from distal to proximal. The TCL was split into two flaps. The endoscope was reinserted to confirm complete release and any remnant ligament was incised. The scope was withdrawn and the proximal aspect of the carpal tunnel was grossly inspected and appeared release with the median nerve visible. The antebrachial fascia at the level of the wrist was then freed from the overlying skin and then the underlying median nerve with blunt dissection. This was transected longitudinally for about 3cm proximal to the wrist incision. The wound was then irrigated with easy flow of irrigant distally and proximally. The incision was closed with a single 4-0 Nylon suture. The wound was dressed w ith Xeroform, Gauze, Kerlix and Reggie. The tourniquet was deflated with the initial dressing and held with some pressure. Blood flow returned easily to all digits with capillary refill less than 2 seconds. The patient tolerated the procedure well and was returned to the Same Day Surgery area in a stable condition suffering no known complication.
== END 2020-10-17 11:27 | disposition home or self-care (01) ==
LOC: SUR 09:03
PROVIDERS: PCP Nurse Practitioner Family; Visit Provider Student in an Organized Health Care Education/Training Program
PROC: 01N54ZZ Release Median Nerve, Percutaneous Endoscopic Approach (ICD-10-PCS; CPT 29848; principal; 2020-10-17 09:15)
DX: G56.01 Carpal tunnel syndrome, right upper limb (principal); I10 Essential (primary) hypertension; E66.01 Morbid (severe) obesity due to excess calories; E03.9 Hypothyroidism, unspecified; G47.33 Obstructive sleep apnea (adult) (pediatric)
CPT/HCPCS: 29848; 81025; J0690; J2001; J2250

== ENCOUNTER 2021-05-20 02:06 | Outpatient (CLI) | payer MEDICAID, SELFPAY ==
[2021-05-20 10:32] LABS: Source Nasal/Nares
[2021-05-20 16:21] LABS: COVID-19 PCR Negative (Negative)
== END 2021-05-20 02:07 | disposition home or self-care (01) ==
LOC: LBO 02:06
PROVIDERS: PCP Nurse Practitioner Primary Care; Visit Provider Student in an Organized Health Care Education/Training Program
DX: Z20.822 Contact with and (suspected) exposure to COVID-19 (principal); Z01.818 Encounter for other preprocedural examination
CPT/HCPCS: 87635

== ENCOUNTER 2021-05-22 06:05 | Day surgery (SDC) | payer MEDICAID, SELFPAY ==
--- NOTE | 2021-05-22 04:22 | W.ANESPRE ---
General Info Date of Service Date Performed: 05/22/21 Height: 5 ft 5 in Weight: 156.943 kg Body Mass Index (BMI): 57.5 Surgical Procedure: Operation Date: 05/22/21 07:40 Proposed Procedure Side Surgeon p Wrist ECTR Left Florencio Contreras MD Meds Allergies and Home Medications Allergies Allergy/AdvReac Type Severity Reaction Status Date / Time gabapentin AdvReac Intermediate drowsiness Verified 05/22/21 06:24 sulfamethoxazole AdvReac Unknown gi upset Verified 05/22/21 06:24 [From Bactrim] trimethoprim [From Bactrim] AdvReac Unknown gi upset Verified 05/22/21 06:24 tramadol AdvReac interfers Verified 05/22/21 06:24 w/ effexor Home Medication Medication Instructions Recorded omeprazole 20 mg capsule,delayed 40 mg PO HS #90 tab-cap 06/23/16 release venlafaxine 75 mg capsule,extended 75 mg PO HS tab-cap 09/08/16 release 24 hr levothyroxine 125 mcg tablet 125 mcg PO HS #90 tab-cap 09/22/16 buspirone 30 mg tablet 30 mg PO BID 04/09/20 dextroamphetamine-amphetamine 15 15 mg PO TID 04/09/20 mg tablet lamotrigine 100 mg tablet 100 mg PO HS 08/26/20 topiramate 25 mg tablet (Topamax) 25 mg PO BID 10/15/20 acetaminophen 500 mg capsule 1,000 mg PO Q8H PRN PRN #90 cap 10/17/20 ibuprofen 600 mg tablet 600 mg PO TID PRN #30 tab 10/17/20 Lactobacillus acidophilus 10 10 cell PO HS 05/21/21 billion cell capsule (Probiotic) cholecalciferol (vitamin D3) 25 1,000 unit PO BID 05/21/21 mcg (1,000 unit) chewable tablet (Vitamin D3) multivitamin 1 tab PO HS 05/21/21 vitamin E 400 unit tablet 400 unit PO HS 05/21/21 atorvastatin 10 mg tablet 10 mg PO DAILY 05/22/21 rizatriptan 10 mg tablet 10 mg PO PRN PRN 05/22/21 Current Visit Medications: Current Medications Generic Name Dose Route Start Last Admin Trade Name Freq PRN Reason Stop Dose Admin Ringer's Solution 1,000 mls @ 80 mls/hr 05/22/21 06:00 IV 06/20/21 23:59 INFUSION MELODIE Cefazolin Sodium/Dextrose 2 gm in 50 mls @ 100 mls/hr 05/22/21 06:00 Ancef Duplex IVPB 06/20/21 23:59 PREOP MELODIE IV Miscellaneous Supplies 1 each 05/22/21 06:00 Iv Access IV 06/20/21 23:59 DIRECTED MELODIE Sodium Chloride 0 ml 05/22/21 06:00 Normal Saline Flush 10 Ml Syr IV 06/20/21 23:59 PRN PRN Sodium Chloride 0 ml 05/22/21 06:00 Normal Saline 10 Ml Vial IJ 06/20/21 23:59 DIRECTED PRN Sterile Water 0 ml 05/22/21 06:00 Water,Injection,Sterile 10 Ml Vial IJ 06/20/21 23:59 DIRECTED PRN PFSH Active Problems Active Problems: Problem Status Onset Code Ankle sprain S93.409A H/O pilonidal cyst Z87.2 Left carpal tunnel syndrome G56.02 Right carpal tunnel syndrome G56.01 Medical History Medical History Abscess, perianal with surgical intervention Adjustment disorder, unspecified (07/29/16) Anxiety Biliary Cholic Depression Gluten intolerance Heartburn Hydradenitis Hypertension Hypothyroid Left carpal tunnel syndrome Migraine (04/11/11) Morbid obesity Nicotine dependence (12/19/13) Quit 11/2013 cold turkey (made her stomach hurt and +headaches) Obstructive sleep apnea syndrome (04/29/11) MILD. Sleep Study 2010 CPAP Other chronic pain (10/08/16) Patellar tendonitis (04/11/11) PTSD (post-traumatic stress disorder) Sleep apnea Surgical History Surgical History Biopsy Duodenum (07/19/14) Dr. Crenshaw Cholecystectomy (09/13/14) Laparoscopic Dr. Crenshaw [facility] History of Achilles tendon repair History of bilateral tubal ligation History of removal of cyst per patient removed from right side of her head History of surgical removal of ganglion cyst Right carpal tunnel syndrome S/P R ECTR: 10/17/2020 Tobacco Smoking/Tobacco Use Status: Former Tobacco Use Alcohol Alcohol Intake: never Substance Use Substance use: Daily Substance use type: marijuana Vital Signs and Lab Results Vital Signs Most Recent Vital Signs in EMR: Temp Pulse Resp BP Pulse Ox 37 C 80 18 143/95 H 99 05/22/21 06:15 05/22/21 06:15 05/22/21 06:15 05/22/21 06:15 05/22/21 06:15 Lab Results Blood Type / Crossmatch: No Data to Display Complete Blood Count: No Data to Display Complete Metabolic Panel: No Data to Display Liver Function Panel: No Data to Display Coagulation Panel: No Data to Display Cardiac Panel: No Data to Display Arterial Blood Gas: No Data to Display Venous Blood Gas: No Data to Display Pancreas Panel: No Data to Display Thyroid Panel: No Data to Display Infectious Disease: Coronavirus (COVID-19)(PCR) Negative (Negative) 05/20/21 10:07 05/20/21 Coronavirus 2019 Source Nasal/Nares 05/20/21 10:07 05/20/21 Blood Cultures: No Data to Display Toxicology Panel: No Data to Display Panel: No Data to Display Anesthesia Assessment and Plan Anesthesia History Personal History: No History of Anesthesia Complications Family History: No Family History of Anesthesia Complications Exercise Tolerance Exercise Tolerance: Metabolic Equivalents>4 Cardiac & Pulmonary Exam Cardiac Exam: Normal S1/S2 Heart Sounds Pulmonary Exam: Clear Bilateral Breath Sounds Implantable Cardiac Device Does patient have a Pacemaker or an ICD?: No Airway Exam Known Difficult Airway: No Mallampati Class: 2 Mouth Opening: Normal (> 3cm) Thyromental Distance: Greater than 3 cm Neck Range of Motion: Full ROM Neck Circumference: Thick Teeth Condition: Normal Dentition Airway Comments: tongue ring in place, will remove. ASA Classification ASA Score: ASA 3 Emergency Case?: No NPO Status NPO Status: NPO Clears >2 hours, Solids >8 hours Status Status: Negative HCG Anesthesia Plan Resuscitation Status: Full Code Anesthesia Technique: General Anesthesia Airway Planned: Natural Airway Monitors Used: Standard Monitors Preoperative Comments:: 45 yo female for ECTR. hx hypothyroid (on levothyroxine), BMI 57, hypertension, gerd ( on omeprazole). Previous Anes: ECTR with idaz/ketamine/prop - no issues.
[2021-05-22 06:15] VITALS: BP 143/95; PULSE 80; RESP 18; TEMP 37; O2SAT 99
[2021-05-22] MEDS: Lactated Ringers 1,000 ML 80 ML IV (06:46)
[2021-05-22 06:55] VITALS: BMI 57.5
--- NOTE | 2021-05-22 06:58 | HPE_ITS ---
Assessment and Plan Assessment and plan (1) Left carpal tunnel syndrome: Status: Acute Assessment and plan: Regla is a 45 year old with left carpal tunnel syndrome. She had a successful carpal tunnel release on the right side back in the summer 2020. She has continued symptoms about this left side and desires have carpal tunnel release performed. Once again, I discussed the technical details of carpal tunnel release and that I perform an endoscopic release, but would make a larger, open, incision if necessary for visualization. I discussed the risks of the procedure to include, but not limited to, bleeding, infection, palmar pain, stiffness, damage to nerves, damage to vessels, damage to tendons, weakness, recurrence, and incomplete release. Given these risks, Regla desires to proceed. She does report having increased pain after the last procedure requiring the use of the pain medications. History of Present Illness Narrative: Regla is a 45yo female who has known carpal tunnel syndrome of the left arm. She has failed nonoperative measures and is here today for a carpal tunnel release on the left side. She previously had a carpal tunnel release on the right with excellent results. She denies any acute medical changes. No chest pain, SOB. Review of Systems All systems reviewed & are unremarkable except as noted in HPI and below PFSH All Active Problems Ankle sprain (Acute) H/O pilonidal cyst (Chronic) Left carpal tunnel syndrome (Acute) Right carpal tunnel syndrome (Acute) S/P R ECTR: 10/17/2020 Medical History Abscess, perianal with surgical intervention Adjustment disorder, unspecified (07/29/16) Anxiety Biliary Cholic Depression Gluten intolerance Heartburn Hydradenitis Hypertension Hypothyroid Migraine (04/11/11) Morbid obesity Nicotine dependence (12/19/13) Quit 11/2013 cold turkey (made her stomach hurt and +headaches) Obstructive sleep apnea syndrome (04/29/11) MILD. Sleep Study 2010 CPAP Other chronic pain (10/08/16) Patellar tendonitis (04/11/11) PTSD (post-traumatic stress disorder) Sleep apnea Surgical History Biopsy Duodenum (07/19/14) Dr. Crenshaw Cholecystectomy (09/13/14) Laparoscopic Dr[facility] Crenshaw [facility] History of Achilles tendon repair History of bilateral tubal ligation History of removal of cyst per patient removed from right side of her head History of surgical removal of ganglion cyst Family History Mother Thyroid disorder Father No problems noted. Brother , Suicide at age 35. Mental disorder Suicide Brother No problems noted. Social History Smoking/Tobacco Use Status: Former Tobacco Use Quit Date: 06/21/20 Smoking risk assessment performed?: Yes Alcohol Intake: never Drug use: Daily Substance use type: marijuana Do you feel safe at home: Yes Do you feel safe in your relationship?: Yes Meds Allergies and Home Medications Allergies Allergy/AdvReac Type Severity Reaction Status Date / Time gabapentin AdvReac Intermediate drowsiness Verified 05/22/21 06:24 sulfamethoxazole AdvReac Unknown gi upset Verified 05/22/21 06:24 [From Bactrim] trimethoprim [From Bactrim] AdvReac Unknown gi upset Verified 05/22/21 06:24 tramadol AdvReac interfers Verified 05/22/21 06:24 w/ effexor Home Medications Medication Instructions Recorded Confirmed Type omeprazole 20 mg capsule,delayed 40 mg PO HS #90 tab-cap 06/23/16 05/22/21 History release venlafaxine 75 mg capsule,extended 75 mg PO HS tab-cap 09/08/16 05/22/21 History release 24 hr levothyroxine 125 mcg tablet 125 mcg PO HS #90 tab-cap 09/22/16 05/22/21 History buspirone 30 mg tablet 30 mg PO BID 04/09/20 05/22/21 History dextroamphetamine-amphetamine 15 15 mg PO TID 04/09/20 05/22/21 History mg tablet lamotrigine 100 mg tablet 100 mg PO HS 08/26/20 05/22/21 History topiramate 25 mg tablet (Topamax) 25 mg PO BID 10/15/20 04/08/21 History acetaminophen 500 mg capsule 1,000 mg PO Q8H PRN PRN #90 cap 10/17/20 05/21/21 Rx ibuprofen 600 mg tablet 600 mg PO TID PRN #30 tab 10/17/20 05/21/21 Rx Lactobacillus acidophilus 10 10 cell PO HS 05/21/21 05/22/21 History billion cell capsule (Probiotic) cholecalciferol (vitamin D3) 25 1,000 unit PO BID 05/21/21 05/22/21 History mcg (1,000 unit) chewable tablet (Vitamin D3) multivitamin 1 tab PO HS 05/21/21 05/22/21 History vitamin E 400 unit tablet 400 unit PO HS 05/21/21 05/22/21 History atorvastatin 10 mg tablet 10 mg PO DAILY 05/22/21 05/22/21 History rizatriptan 10 mg tablet 10 mg PO PRN PRN 05/22/21 05/22/21 History Exam Const General: cooperative, comfortable and no acute distress Nutritional Appearance: obese morbidly obese Resp Auscultation: clear to auscultation bilaterally (diminished) Cardio Rate: regular rate Rhythm: regular rhythm Results Last Vital Signs Temp 37 C 05/22/21 06:15 Pulse 80 05/22/21 06:15 Resp 18 05/22/21 06:15 BP 143/95 H 05/22/21 06:15 Pulse Ox 99 05/22/21 06:15
--- NOTE | 2021-05-22 07:08 | PDOC.DSDIS_ITS ---
Discharge Plan Disposition Patient Disposition: HOME Condition: Good Discharge Details Reason For Visit: Left Carpal Tunnel Syndrome Attending Provider: Florencio Contreras Primary Care Provider: ROSITA VERA Home Meds and New Rx's Prescriptions: New acetaminophen 500 mg tablet 500 mg PO Q6H PRN PRN (Reason: pain) Qty: 40 3RF hydrocodone-acetaminophen 5-325 mg tablet 1 tab PO Q6H PRN (Reason: pain) Qty: 10 0RF ibuprofen 600 mg tablet 600 mg PO TID PRN (Reason: pain) Qty: 60 3RF Continued omeprazole 20 MG capsule,delayed release(DR/EC) 40 mg PO HS Qty: 90 3RF Rx Instructions: Take in the morning 30 mins before breakfast. venlafaxine 75 MG capsule,extended release 24hr 75 mg PO HS 0RF Rx Instructions: Keerthi Flanagan [employer]CH[employer] levothyroxine 125 MCG tablet 125 mcg PO HS Qty: 90 3RF buspirone 30 mg tablet 30 mg PO BID 0RF Label Comments: TAKE 1 TABLET BY MOUTH TWICE DAILY dextroamphetamine-amphetamine 15 mg tablet 15 mg PO TID 0RF Label Comments: TAKE 1 TABLET BY MOUTH THREE TIMES DAILY FOR 28 DAYS. topiramate [Topamax] 25 mg tablet 25 mg PO BID 0RF lamotrigine 100 mg tablet 100 mg PO HS 0RF Label Comments: TAKE ONE TABLET BY MOUTH AT BEDTIME multivitamin Tablet 1 tab PO HS 0RF vitamin E 400 unit Tablet 400 unit PO HS 0RF cholecalciferol (vitamin D3) [Vitamin D3] 25 mcg (1,000 unit) Tablet,Chewable 1,000 unit PO BID 0RF Probiotic 10 billion cell Capsule 10 cell PO HS 0RF rizatriptan 10 mg Tablet 10 mg PO PRN PRN0RF atorvastatin 10 mg Tablet 10 mg PO DAILY 0RF Discontinued ibuprofen 600 mg tablet 600 mg PO TID PRN (Reason: pain) Qty: 30 0RF acetaminophen 500 mg capsule 1,000 mg PO Q8H PRN PRNQty: 90 0RF Discharge Instructions Stand Alone Forms: Diane Tate Tunnel Release Referrals: Florencio Contreras MD [ [facility] STAFF PHYSICIAN] - Activity:: Elevate Remove Dressings/Wound Care:: 48 hours Shower/Bathe:: 48 hours Diet:: As Tolerated Discharge Orders Discharge Orders: Discharge Order (Routine); Ordered 03/02/22 Ordered By: Florencio Contreras DS: Diagnosis Discharge Diagnosis (1) Left carpal tunnel syndrome: Status: Acute
[2021-05-22] MEDS: ceFAZolin 2 GM/50 ML BAG IVPB (07:24)
[2021-05-22] MEDS: Sodium Bicarbonate 50 MEQ/50 ML VIAL (07:40)
--- NOTE | 2021-05-22 07:54 | W.PM.OP ---
Date of service: 05/22/21 Time of Service: 07:40 Operative Note Operative Note DATE OF PROCEDURE: 05/23/21 PRE-OP DIAGNOSIS: Left Carpal Tunnel Syndrome POST-OP DIAGNOSIS: same PROCEDURE: Left Endoscopic Carpal Tunnel Release SURGEON: Florencio Contreras ANESTHESIA TYPE: General:No Airway Refer to Anesthesia Record ESTIMATED BLOOD LOSS: 0 PATHOLOGY: none sent TOURNIQUET TIME: 6 COMPLICATIONS: None Patient was transported to: same day Patient's condition: stable Indications: I have seen Regla in clinic for symptoms of carpal tunnel syndrome. The numbness, tingling, and pain limited function. Clinical exam findings with nerve conduction tests confirmed the diagnosis of carpal tunnel syndrome. Nonoperative measures such as bracing, time, activity modifications had been tried but disability and pain persisted. She had had a previously successful right carpal tunnel release. I discussed carpal tunnel release with the patient. I reviewed the risks of the procedure to include, but not limited to, bleeding, infection, pain, stiffness, incomplete release, damage to nerves or vessels, persistent numbness, recurrence. Despite these risks, the patient elected to proceed. Findings: There was tightened carpal tunnel. This was dilated and released successfully with the endoscopic with increased space within the tunnel. The antebrachial fascia was released proximally freeing the median nerve at the wrist. Procedure Description: Regla was greeted in the preoperative holding area where the correct side was identified and marked. The consent was reviewed with the patient and signed. The history and physical was updated. All questions were answered. She was taken back to the operating room. The patient was placed into the supine position on the operating room table with the left arm on an arm board. A nonsterile tourniquet was placed high onto the arm. All bony prominences were well padded. Prophylactic antibiotics in the form of Cefazolin were administered. The left arm was then prepped with Chloraprep and draped in a standard fashion with stockinette and extremity drape. A timeout to confirm correct identity, side and site, procedure, allergies, anesthesia, and medical concerns was performed. The surgical site was marked in the volar wrist creases in line with the radial border of the fourth ray. This area was anesthetized with approximately 6cc of 1% Lidocaine. The limb was then exsanguinated with an Esmarch. The skin was incised with a 15 blade, approximately 1cm. The skin only was cut and the deeper tissue was dissected bluntly with a tenotomy scissor, avoiding passing nerve and venous structures. The fascia was penetrated and opened bluntly. A two-prong skin hook was placed under this proximal fascial edge. A series of hamate finders were used to identify and dilate the carpal tunnel. Synovial elevator was used to free synovial attachments to the underside of the transverse carpal ligament. My thumb was kept in the palm to boogie the distal extent of the carpal tunnel and correctly position the hand. The [employer] endoscope was inserted without difficulty and without resistance. Excellent visualization showed horizontally running fibers of the transverse carpal ligament (TCL). The distal extent of the TCL was visualized and the end of the scope palpated with the thumb. The blade was elevated and withdrawn from distal to proximal. The TCL was split into two flaps. The endoscope was reinserted to confirm complete release and any remnant ligament was incised. The scope was withdrawn and the proximal aspect of the carpal tunnel was grossly inspected and appeared release with the median nerve visible. The antebrachial fascia at the level of the wrist was then freed from the overlying skin and then the underlying median nerve with blunt dissection. This was transected longitudinally for about 3cm proximal to the wrist incision. The wound was then irrigated with easy flow of irrigant distally and proximally. The incision was closed with a single 4-0 Nylon suture. The wound was dressed with Xeroform, Gauze, Kerlix and Reggie. The tourniquet was deflated with the initial dressing and held with some pressure. Blood flow returned easily to all digits with capillary refill less than 2 seconds. The patient tolerated the procedure well and was returned to the Same Day Surgery area in a stable condition suffering no known complication.
[2021-05-22 07:55] VITALS: BP 109/72; PULSE 89; RESP 18; TEMP 36.3; O2SAT 98
--- NOTE | 2021-05-22 08:10 | W.ANESPOSTOP ---
Postoperative Evaluation Date, Time and Location Date Performed: 05/22/21 Time Performed: 08:10 Patient Location: Day Surgery Unit Vital Signs Most Recent Imported Vital Signs: Most Recent Vital Signs Temp Pulse Resp BP Pulse Ox 36.3 C L 89 18 109/72 98 05/22/21 07:55 05/22/21 07:55 05/22/21 07:55 05/22/21 07:55 05/22/21 07:55 Pain Score Most Recent Pain Score: Most Recent Pain Score Pain Level 0 05/22/21 07:55 Assessment Mental Status: Awake (Alert & Oriented to Patient Baseline) Airway and Respiratory Function: Patent airway with normal (patient baseline) respiratory exam Cardiovascular Function: Hemodynamically Stable Hydration Status: Adequately Hydrated Nausea & Vomiting: No Nausea or Vomiting Pain: Pain is tolerable per patient Peripheral Nerve Block: Patient did not receive a nerve block
[2021-05-22 08:30] VITALS: BP 123/83; PULSE 81; RESP 16; TEMP 37; O2SAT 100
== END 2021-05-22 08:45 | disposition home or self-care (01) ==
PROVIDERS: PCP Nurse Practitioner Primary Care; Visit Provider Student in an Organized Health Care Education/Training Program
PROC: 01N54ZZ Release Median Nerve, Percutaneous Endoscopic Approach (ICD-10-PCS; CPT 29848; principal; 2021-05-22 07:30)
DX: G56.02 Carpal tunnel syndrome, left upper limb (principal); I10 Essential (primary) hypertension; E03.9 Hypothyroidism, unspecified; E66.01 Morbid (severe) obesity due to excess calories; Z68.43 Body mass index [BMI] 50.0-59.9, adult
CPT/HCPCS: 29848; J0690; J1885; J2001; J2250

== ENCOUNTER 2021-05-30 16:33 | Emergency (ER) | payer MEDICAID, SELFPAY ==
[2021-05-30 16:45] VITALS: BP 150/97; PULSE 85; RESP 16; TEMP 37.5; O2SAT 100
--- NOTE | 2021-05-30 17:15 | ED.GENADUL_ITS ---
Discharge Plan Disposition Patient Disposition: HOME Condition: Stable Discharge Details Clinical Impression: Pain due to dental caries Primary Care Provider: ROSITA VERA ED Provider: Massiel Thompson Home Meds and New Rx's Prescriptions: New penicillin V potassium 500 mg tablet 500 mg PO QID 7 Days Qty: 28 0RF Continued omeprazole 20 MG capsule,delayed release(DR/EC) 40 mg PO HS Qty: 90 3RF Rx Instructions: Take in the morning 30 mins before breakfast. venlafaxine 75 MG capsule,extended release 24hr 75 mg PO HS 0RF Rx Instructions: Keerthi Flanagan DIRECTOR [employer]DEP[employer] levothyroxine 125 MCG tablet 125 mcg PO HS Qty: 90 3RF buspirone 30 mg tablet 30 mg PO BID 0RF Label Comments: TAKE 1 TABLET BY MOUTH TWICE DAILY dextroamphetamine-amphetamine 15 mg tablet 15 mg PO TID 0RF Label Comments: TAKE 1 TABLET BY MOUTH THREE TIMES DAILY FOR 28 DAYS. lamotrigine 100 mg tablet 100 mg PO HS 0RF Label Comments: TAKE ONE TABLET BY MOUTH AT BEDTIME multivitamin Tablet 1 tab PO HS 0RF vitamin E 400 unit Tablet 400 unit PO HS 0RF cholecalciferol (vitamin D3) [Vitamin D3] 25 mcg (1,000 unit) Tablet,Chewable 1,000 unit PO BID 0RF Probiotic 10 billion cell Capsule 10 cell PO HS 0RF rizatriptan 10 mg Tablet 10 mg PO PRN PRN0RF atorvastatin 10 mg Tablet 10 mg PO DAILY 0RF acetaminophen 500 mg tablet 500 mg PO Q6H PRN PRN (Reason: pain) Qty: 40 3RF ibuprofen 600 mg tablet 600 mg PO TID PRN (Reason: pain) Qty: 60 3RF Discharge Instructions Instructions: Dental Caries (ED) Additional Instructions: Drink plenty of fluids and get plenty of rest. Take the antibiotics as directed until finished. Call a local dentist to schedule a follow-up appointment for reevaluation. Return to the emergency department with any worsening or new concerning symptoms such as fever, increased pain, redness or swelling. Discharge Data Discharge Date/Time-TO BE ENTERED AT DEPARTURE: 05/30/21 17:26 Discharge Physician: Massiel Thompson Medical Decision Making 45yo F presents with R upper dental pain since this morning and a concern that the tooth is going to break off. Pt appears comfortable and nontoxic. She has some poor dentition. Tooth #3 tender to palpation w/o evidence of abscess. Tooth #4 with decay noted at base. No drooling, trismus, submandibular swelling. Will cover for potential developing dental infection with penicillin V K. She was given a dose here and a prescription to go. She was given a dental list for follow up. Usual and customary return precautions given prior to discharge. Medical Records Medical records reviewed: Yes I reviewed the patient's medical records. HPI General Mode of arrival: ambulatory . Date/Time Provider Initiated Documentation: 05/30/21 16:55 . Limitations to Documentation: no limitations . Information obtained by: patient . HPI Narrative: Pt is a 45yo F who presents to the ED w/ a c/o R upper dental pain since this morning. She states the pain is worse with chewing and she is concerned that the tooth might break off when she is eating. She states she called [facility] dental and they refused to see me. Denies fever, difficulty swallowing, sore throat or neck pain. Related Data Home Medications Medication Instructions Recorded Confirmed omeprazole 20 mg capsule,delayed 40 mg PO HS #90 tab-cap 06/23/16 05/30/21 release venlafaxine 75 mg capsule,extended 75 mg PO HS tab-cap 09/08/16 05/30/21 release 24 hr levothyroxine 125 mcg tablet 125 mcg PO HS #90 tab-cap 09/22/16 05/30/21 buspirone 30 mg tablet 30 mg PO BID 04/09/20 05/30/21 dextroamphetamine-amphetamine 15 15 mg PO TID 04/09/20 05/30/21 mg tablet lamotrigine 100 mg tablet 100 mg PO HS 08/26/20 05/30/21 Lactobacillus acidophilus 10 10 cell PO HS 05/21/21 05/30/21 billion cell capsule (Probiotic) cholecalciferol (vitamin D3) 25 1,000 unit PO BID 05/21/21 05/30/21 mcg (1,000 unit) chewable tablet (Vitamin D3) multivitamin 1 tab PO HS 05/21/21 05/30/21 vitamin E 400 unit tablet 400 unit PO HS 05/21/21 05/30/21 acetaminophen 500 mg tablet 500 mg PO Q6H PRN PRN #40 tab 05/22/21 05/30/21 atorvastatin 10 mg tablet 10 mg PO DAILY 05/22/21 05/30/21 ibuprofen 600 mg tablet 600 mg PO TID PRN #60 tab 05/22/21 05/30/21 rizatriptan 10 mg tablet 10 mg PO PRN PRN 05/22/21 05/30/21 penicillin V potassium 500 mg 500 mg PO QID 7 Days #28 tab 05/30/21 tablet Previous Rx's Medication Instructions Recorded acetaminophen 500 mg tablet 500 mg PO Q6H PRN PRN #40 tab 05/22/21 ibuprofen 600 mg tablet 600 mg PO TID PRN #60 tab 05/22/21 penicillin V potassium 500 mg 500 mg PO QID 7 Days #28 tab 05/30/21 tablet Allergies Allergy/AdvReac Type Severity Reaction Status Date / Time gabapentin AdvReac Intermediate drowsiness Verified 05/30/21 16:48 sulfamethoxazole AdvReac Unknown gi upset Verified 05/30/21 16:48 [From Bactrim] trimethoprim [From Bactrim] AdvReac Unknown gi upset Verified 05/30/21 16:48 tramadol AdvReac interfers Verified 05/30/21 16:48 w/ effexor General Stated Complaint: DentalOral HAL: 4 Review of Systems All systems reviewed & are unremarkable except as noted in HPI and below Constitutional Constitutional: Reports as per HPI, Denies chills and Denies fever(s) Eyes Eyes: Denies blurry vision ENT Ears, Nose, Mouth, and Throat: Reports dental pain, Denies dizziness, Denies sore throat and Denies throat swelling Cardiovascular Cardiovascular: Denies chest pain and Denies dyspnea Respiratory Respiratory: Denies cough and Denies dyspnea Gastrointestinal Gastrointestinal: Denies abdominal pain, Denies diarrhea and Denies vomiting Genitourinary Genitourinary: Denies hematuria and Denies dysuria Musculoskeletal Musculoskeletal: Denies back pain and Denies numbness Integumentary/Breasts Skin/Breast: Denies lesions and Denies rash Neurologic Neurologic: Denies dizziness, Denies localized weakness and Denies numbness Allergic/Immunologic Allergic/Immunologic: Denies throat swelling PFSH All Active Problems Pain due to dental caries (Acute) Ankle sprain (Acute) H/O pilonidal cyst (Chronic) Left carpal tunnel syndrome (Acute) Right carpal tunnel syndrome (Acute) S/P R ECTR: 10/17/2020 Medical History Abscess, perianal with surgical intervention Adjustment disorder, unspecified (07/29/16) Anxiety Biliary Cholic Depression Gluten intolerance Heartburn Hydradenitis Hypertension Hypothyroid Migraine (04/11/11) Morbid obesity Nicotine dependence (12/19/13) Quit 11/2013 cold turkey (made her stomach hurt and +headaches) Obstructive sleep apnea syndrome (04/29/11) MILD. Sleep Study 2010 CPAP Other chronic pain (10/08/16) Patellar tendonitis (04/11/11) PTSD (post-traumatic stress disorder) Sleep apnea Surgical History Biopsy Duodenum (07/19/14) Dr. Crenshaw Cholecystectomy (09/13/14) Laparoscopic Dr. Crenshaw [facility] History of Achilles tendon repair History of bilateral tubal ligation History of removal of cyst per patient removed from right side of her head History of surgical removal of ganglion cyst Family History Mother Thyroid disorder Father No problems noted. Brother , Suicide at age 35. Mental disorder Suicide Brother No problems noted. Social History Smoking/Tobacco Use Status: Former Tobacco Use Quit Date: 06/21/20 Smoking risk assessment performed?: Yes Alcohol Intake: never Drug use: Daily Substance use type: marijuana Do you feel safe at home: Yes Do you feel safe in your relationship?: Yes Exam Const General: cooperative, healthy appearing and no acute distress HENKY Head: normal to inspection Ears: hearing grossly normal bilaterally, external ears normal and TM's normal bilaterally General nose exam: external nose normal Face and sinus: normal facial exam Mouth: oral mucosae normal Teeth and gingiva: poor dentition Teeth image: 1. Tooth #3 tender to palpation. Tooth #4 with decay noted at base. There is no significant surrounding edema, erythema, fluctuance, induration, drainage or bleeding. Throat: posterior oropharynx normal Eyes General: appearance normal, both eyes and all related structures Neck Neck: normal visual inspection, full ROM, no lymphadenopathy, no meningeal signs, trachea midline, no anterior neck swelling and No submandibular swelling Resp Effort & Inspection: normal respiratory effort and able to speak in complete sentences Cardio Rate: regular rate Skin General skin exam: no rashes or lesions noted Neuro General: patient alert, patient awake and patient oriented x3 Motor: muscle tone normal throughout Extrem General: normal to inspection and full ROM Psych Appearance: grossly normal Affect: normal affect Course Vital Signs Vital signs: Vital Signs Temperature 99.5 F 05/30/21 16:45 Pulse 85 05/30/21 16:45 Respiratory Rate 16 05/30/21 16:45 Blood Pressure 150/97 H 05/30/21 16:45 Pulse Oximetry 100 05/30/21 16:45 Temperature 99.5 F 05/30/21 16:45 Temperature Source Skin 05/30/21 16:45 Pulse 85 05/30/21 16:45 Respiratory Rate 16 05/30/21 16:45 Respiratory Effort 05/30/21 16:45 Blood Pressure 150/97 H 05/30/21 16:45 Blood Pressure Position Sitting 05/30/21 16:45 Pulse Oximetry 100 05/30/21 16:45 Oxygen Delivery Method Room Air 05/30/21 16:45 Oxygen Flow Rate 0 05/30/21 16:45 Pain Level 7 05/30/21 16:45
[2021-05-30] MEDS: Penicillin V POTASSIUM 500 MG TAB PO (17:21)
== END 2021-05-30 17:26 | disposition home or self-care (01) ==
PROVIDERS: Emergency Provider Physician Assistant; PCP Nurse Practitioner Primary Care
DX: K08.89 Other specified disorders of teeth and supporting structures (principal); K02.9 Dental caries, unspecified
CPT/HCPCS: 99283

== ENCOUNTER 2021-06-29 20:04 | Emergency (ER) | payer MEDICAID, SELFPAY ==
[2021-06-29 20:07] VITALS: BP 152/96; PULSE 102; RESP 18; TEMP 36.5; O2SAT 98
--- NOTE | 2021-06-29 20:27 | W.ED.GENAD ---
Discharge Plan Disposition Patient Disposition: HOME Condition: Good Discharge Details Clinical Impression: Pain due to dental caries, Abscess, dental Primary Care Provider: ROSITA VERA ED Provider: Edenilson Shaver Home Meds and New Rx's Prescriptions: New amoxicillin-pot clavulanate 875-125 mg tablet 1 tab PO BID 7 Days Qty: 14 0RF Continued omeprazole 20 MG capsule,delayed release(DR/EC) 40 mg PO HS Qty: 90 3RF Rx Instructions: Take in the morning 30 mins before breakfast. 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 lamotrigine 100 mg tablet 100 mg PO HS 0RF Label Comments: TAKE ONE TABLET BY MOUTH AT BEDTIME multivitamin Tablet 1 tab PO HS 0RF vitamin E 400 unit Tablet 400 unit PO HS 0RF cholecalciferol (vitamin D3) [Vitamin D3] 25 mcg (1,000 unit) Tablet,Chewable 1,000 unit PO BID 0RF Probiotic 10 billion cell Capsule 10 cell PO HS 0RF rizatriptan 10 mg Tablet 10 mg PO PRN PRN0RF atorvastatin 10 mg Tablet 10 mg PO DAILY 0RF acetaminophen 500 mg tablet 500 mg PO Q6H PRN PRN (Reason: pain) Qty: 40 3RF ibuprofen 600 mg tablet 600 mg PO TID PRN (Reason: pain) Qty: 60 3RF Discharge Instructions Instructions: Dental Abscess (ED) Additional Instructions: The block we administered should help improve your pain. Please take 800 mg of ibuprofen every 6 hours and 1000 mg of Tylenol every 6 hours to help with the inflammation and pain. These are the maximum doses. Please take the antibiotic as directed to help with the infection in your tooth. Please use the dental list that we have provided to contact the dentist for prompt follow-up and evaluation for tooth removal. If you notice any worsening of your symptoms, or any new symptoms such as difficulty swallowing, difficulty breathing, vomiting, diarrhea, fever, chills, shortness of breath, chest pain, numbness, weakness, or fainting , please return immediately to the emergency department for reevaluation. Please follow up with your primary care provider as soon as possible for reassessment and reevaluation. As always, it was a pleasure participating in your medical care today. Referrals: ROSITA VERA [Primary Care Provider] - Medical Decision Making 45-year-old female with a past medical history of high cholesterol, anxiety, adjustment disorder, depression, hypothyroidism, who presents today for dental pain. Patient had a tooth extraction 1 month ago and she states that ever since that time she has had pain in her upper front teeth. Over the last 24 hours it is gotten notably worse, and she has developed swelling above the teeth. She denies fever or chills. She has been taking Tylenol and Motrin [id number]. She states that the current dentist that she was seeing is unwilling to see her at the time being secondary to a [employer] review that was written. She denies any difficulty swallowing. She states that she has called other dental clinics but has not been able to see another dentist. She was on penicillin previously and last dose was about a week or 2 ago. Pain is made worse with movement and palpation. Improved by nothing. No other complaints at this time. No other modifying factors. Physical exam demonstrates evidence of a small periapical abscess over right front incisor. No signs of airway compromise or swelling in the whatsoever. We will give Augmentin to go, recommend outpatient dental follow-up, recommend continued Tylenol Motrin, for dental block, and I&D. 9 PM Dental block was performed, patient tolerated this well, pain notably improved. Small amount of pus removed from the periapical abscess on incision with 18-gauge needle. Did caution patient in regards to continued Tylenol and Motrin use secondary to her history of liver dysfunction in the distant past, however did recommend that it would be reasonable to continue at mild doses forward. However we did discuss with her with the maximum doses were for these medications as well. Discussed red flags which to return. I have extensively reviewed the treatment plan and discharge instructions with the patient. I have addressed all patient concerns at this time. The patient was made aware of what symptoms to monitor for that would warrant a return to the emergency department. Discussed the plan with the patient, they demonstrate verbal understanding and agreement with our assessment and plan at this time. The documentation in this chart was dictated using [employer] dictation software. Please excuse any dictation errors. HPI General Date/Time Provider Initiated Documentation: 06/29/21 20:10. HPI Narrative: 45-year-old female with a past medical history of high cholesterol, anxiety, adjustment disorder, depression, hypothyroidism, who presents today for dental pain. Patient had a tooth extraction 1 month ago and she states that ever since that time she has had pain in her upper front teeth. Over the last 24 hours it is gotten notably worse, and she has developed swelling above the teeth. She denies fever or chills. She has been taking Tylenol and Motrin [id number]. She states that the current dentist that she was seeing is unwilling to see her at the time being secondary to a [employer] review that was written. She denies any difficulty swallowing. She states that she has called other dental clinics but has not been able to see another dentist. She was on penicillin previously and last dose was about a week or 2 ago. Pain is made worse with movement and palpation. Improved by nothing. No other complaints at this time. No other modifying factors. Related Data Home Medications Medication Instructions Recorded Confirmed omeprazole 20 mg capsule,delayed 40 mg PO HS #90 tab-cap 06/23/16 05/30/21 release venlafaxine 75 mg capsule,extended 75 mg PO HS tab-cap 09/08/16 05/30/21 release 24 hr levothyroxine 125 mcg tablet 125 mcg PO HS #90 tab-cap 09/22/16 05/30/21 buspirone 30 mg tablet 30 mg PO BID 04/09/20 05/30/21 dextroamphetamine-amphetamine 15 15 mg PO TID 04/09/20 05/30/21 mg tablet lamotrigine 100 mg tablet 100 mg PO HS 08/26/20 05/30/21 Lactobacillus acidophilus 10 10 cell PO HS 05/21/21 05/30/21 billion cell capsule (Probiotic) cholecalciferol (vitamin D3) 25 1,000 unit PO BID 05/21/21 05/30/21 mcg (1,000 unit) chewable tablet (Vitamin D3) multivitamin 1 tab PO HS 05/21/21 05/30/21 vitamin E 400 unit tablet 400 unit PO HS 05/21/21 05/30/21 acetaminophen 500 mg tablet 500 mg PO Q6H PRN PRN #40 tab 05/22/21 06/03/21 atorvastatin 10 mg tablet 10 mg PO DAILY 05/22/21 05/30/21 ibuprofen 600 mg tablet 600 mg PO TID PRN #60 tab 05/22/21 05/30/21 rizatriptan 10 mg tablet 10 mg PO PRN PRN 05/22/21 05/30/21 amoxicillin 875 mg-potassium 1 tab PO BID 7 Days #14 tab 06/29/21 clavulanate 125 mg tablet Previous Rx's Medication Instructions Recorded acetaminophen 500 mg tablet 500 mg PO Q6H PRN PRN #40 tab 05/22/21 ibuprofen 600 mg tablet 600 mg PO TID PRN #60 tab 05/22/21 amoxicillin 875 mg-potassium 1 tab PO BID 7 Days #14 tab 06/29/21 clavulanate 125 mg tablet Allergies Allergy/AdvReac Type Severity Reaction Status Date / Time gabapentin AdvReac Intermediate drowsiness Verified 06/29/21 20:17 sulfamethoxazole AdvReac Unknown gi upset Verified 06/29/21 20:17 [From Bactrim] trimethoprim [From Bactrim] AdvReac Unknown gi upset Verified 06/29/21 20:17 tramadol AdvReac interfers Verified 06/29/21 20:17 w/ effexor General Stated Complaint: DentalOral HAL: 4 Review of Systems All systems reviewed & are unremarkable except as noted in HPI and below PFSH All Active Problems (Updated 06/29/21 @ 20:31 by Edenilson Shaver DO) Abscess, dental (Acute) Pain due to dental caries (Acute) Ankle sprain (Acute) H/O pilonidal cyst (Chronic) Medical History Abscess, perianal with surgical intervention Adjustment disorder, unspecified (07/29/16) Anxiety Biliary Cholic Depression Gluten intolerance Heartburn Hydradenitis Hypertension Hypothyroid Migraine (04/11/11) Morbid obesity Nicotine dependence (12/19/13) Quit 11/2013 cold turkey (made her stomach hurt and +headaches) Obstructive sleep apnea syndrome (04/29/11) MILD. Sleep Study 2010 CPAP Other chronic pain (10/08/16) Patellar tendonitis (04/11/11) PTSD (post-traumatic stress disorder) Sleep apnea Surgical History Biopsy Duodenum (07/19/14) Dr. Crenshaw Cholecystectomy (09/13/14) Laparoscopic Dr. Crenshaw [facility] History of Achilles tendon repair History of bilateral tubal ligation History of removal of cyst per patient removed from right side of her head History of surgical removal of ganglion cyst Left carpal tunnel syndrome s/p left ECTR DOS: 05/22/21 Right carpal tunnel syndrome S/P R ECTR: 10/17/2020 Family History Mother Thyroid disorder Father No problems noted. Brother , Suicide at age 35. Mental disorder Suicide Brother No problems noted. Social History Smoking/Tobacco Use Status: Former Tobacco Use Quit Date: 06/21/20 Smoking risk assessment performed?: Yes Alcohol Intake: never Drug use: Daily Substance use type: marijuana Do you feel safe at home: Yes Do you feel safe in your relationship?: Yes Exam Narrative Exam Narrative: 1.Const: Well-nourished, Well-developed, appearing stated age 2.Eyes: PERRL, no conjunctival injection, and symmetrical lids. 3.ENT: Atraumatic external nose and ears. Moist MM. Neck: Symmetric, trachea midline, No thyromegaly. No evidence of airway compromise or swelling in the posterior oropharynx. There is evidence of dental caries throughout. The patient's front upper teeth do not appear overly loose. There is a small area of swelling over the periapical space on the right upper front incisor. No drainage or discharge. 4.CVS: +S1/S2, No murmurs or gallops. Peripheral pulses 2+ and equal in all extremities. Brisk capillary refill in all extremities. 5.RESP: Unlabored respiratory effort. Clear to auscultation bilaterally. No wheezes rales or rhonchi 6.GI: Soft, Nontender/Nondistended, No hepatosplenomegaly. No guarding or rebound. 7.MSK: Normocephalic/Atraumatic, Extremities w/o deformity or ttp No cyanosis or clubbing, Normal movement of all extremities 8.Skin: Warm, Dry. No rashes or lesions. 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 Sensation grossly intact, no focal neurologic deficits. 10.Psych: (AAO) x3. Appropriate mood and affect Course Vital Signs Vital signs: Vital Signs Temperature 36.5 C 06/29/21 20:07 Pulse 102 H 06/29/21 20:07 Respiratory Rate 18 06/29/21 20:07 Blood Pressure 152/96 H 06/29/21 20:07 Pulse Oximetry 98 06/29/21 20:07 Temperature 36.5 C 06/29/21 20:07 Temperature Source Skin 06/29/21 20:07 Pulse 102 H 06/29/21 20:07 Respiratory Rate 18 06/29/21 20:07 Respiratory Effort 06/29/21 20:12 Blood Pressure 152/96 H 06/29/21 20:07 Blood Pressure Position Sitting 06/29/21 20:07 Pulse Oximetry 98 06/29/21 20:07 Oxygen Delivery Method Room Air 06/29/21 20:07 Oxygen Flow Rate 0 06/29/21 20:07 Pain Level 8 06/29/21 20:12 Procedures Abscess I/D Site: Other (dental) Side (if applicable): Right Local Anesthetic: Bupivicaine 0.5% Amount of anesthesia used (mL): 5 Technique: Needle Aspiration Amount of fluid expressed (mL): 2 Irrigation: No Packing used?: None Nerve Block Nerve Block 1: Time out performed: Yes Local Anesthetic: Bupivicaine 0.5% Amount of anesthesia used (mL): 5 Side: right Intraoral Nerve Block: superior alveolar Procedure Successful: Yes Patient Tolerated Procedure: well Complications: none
[2021-06-29] MEDS: Bupivacaine 0.5% Pres-Free 30 ML VIAL IJ (20:56)
[2021-06-29] MEDS: Amox. 875/Clav. 125, 2 TABS/BTL 1 TAB PO (20:56)
[2021-06-29] MEDS: Benzocaine 20% Gel 30 GM JAR MM (20:56)
== END 2021-06-29 21:06 | disposition home or self-care (01) ==
PROVIDERS: Emergency Provider Student in an Organized Health Care Education/Training Program; PCP Nurse Practitioner Primary Care
DX: K04.7 Periapical abscess without sinus (principal); K08.89 Other specified disorders of teeth and supporting structures
CPT/HCPCS: 10160

== ENCOUNTER 2021-07-27 18:07 | Emergency (ER) | payer MEDICAID, SELFPAY ==
[2021-07-27] VITALS (21 sets, daily range): BP systolic 137–149; BP diastolic 80–101; PULSE 65–94; RESP 16–32; TEMP 36.4–36.7; O2SAT 96–100
--- NOTE | 2021-07-27 18:00 | RT.EKG_ITS ---
APPROVED REPORT Exam: Resting ECG Reason for Exam: Nausea Patient Location: E HR:75 bpm ECG Measurements Heart Rate 75 AXIS PA 184 P 34 QRSd 99 QRS 11 QT 362 T 33 QTc 404 Conclusion Sinus rhythm...normal P axis, V-rate 60- 99
[2021-07-27] MEDS: Ondansetron 4 MG/2 ML VIAL IVP (18:34)
[2021-07-27] MEDS: Normal Saline 1,000 ML 1000 ML IV (18:34)
[2021-07-27 18:52] LABS: Source Nasal/Nares
[2021-07-27 18:57] LABS: Abs Immature Grans 0.02 10^3/uL (0.0-0.06); Absolute Basophil Count 0.03 10^3/uL (0.0-0.2); Absolute Monocyte Count 0.42 10^3/uL (0.1-0.8); Absolute Neutrophil Count 4.82 10^3/uL (1.2-6.7); Basophils % 0.4; Eosinophils % 6.4; HCT 43.8 % (36.0-46.0); HGB 13.9 g/dL (11.2-15.7); Immature Grans % 0.3; Lymphocytes % 25.7; MCH 28.8 pg (27.0-33.0); MCHC 31.7 % (32.0-36.0); MCV 91 fL (80-95); MPV 10.7 fL (8.0-11.0); Monocytes % 5.4; Neutrophils % 61.8; Platelet Count 194 10^3/uL (130-400); RBC 4.82 10^6/uL (3.93-5.22); RDW-SD 46.3 fL; WBC 7.79 10^3/uL (4.4-10.8)
[2021-07-27 19:27] LABS: ALT 32 U/L (14-59); AST 13 U/L (15-37); Albumin 3.7 g/dL (3.4-5.0); Alkaline Phosphatase 53 U/L (46-116); Anion Gap 7.2 mmol/L (3-11); BUN 13 mg/dL (7-18); Bilirubin, Total 1.1 mg/dL (0.2-1.0); CO2 27.8 mmol/L (21.0-32.0); CREATININE 0.9 mg/dL (0.55-1.02); Calcium 8.7 mg/dL (8.5-10.1); Chloride 104 mmol/L (98-107); Glucose 98 mg/dL (74-106); Potassium 4.1 mmol/L (3.5-5.1); Sodium 139 mmol/L (136-145); Total Protein 7.4 g/dL (6.4-8.2)
[2021-07-27 19:37] LABS: Lipase 30 U/L (73-393)
[2021-07-27 19:42] LABS: COVID-19 PCR Negative (Negative)
[2021-07-27 19:53] LABS: Bilirubin Negative (Negative); Blood Negative (Negative); Clarity Sl Cloudy (Clear); Glucose Negative (Negative); Ketones Negative (Negative); Leukocyte Esterase Moderate (Negative); Nitrite Negative (Negative); Specific Gravity >= 1.030 (1.005-1.025); Urobilinogen 0.2 EU/dL (Up TO 0.2); pH 5.5 (5-8)
[2021-07-27 20:02] LABS: C Diff PCR Negative (Negative)
--- NOTE | 2021-07-27 20:08 | ED.GENADUL_ITS ---
Discharge Plan Disposition Patient Disposition: HOME Condition: Improving Discharge Details Clinical Impression: Abdominal pain Primary Care Provider: ROSITA VERA ED Provider: Redd Topete Home Meds and New Rx's Prescriptions: New ondansetron 4 mg tablet,disintegrating 4 mg PO TID PRN3 Days Qty: 9 0RF Continued omeprazole 20 MG capsule,delayed release(DR/EC) 40 mg PO HS Qty: 90 3RF Rx Instructions: Take in the morning 30 mins before breakfast. venlafaxine 75 MG capsule,extended release 24hr 75 mg PO HS 0RF Rx Instructions: Keerthi Flanagan DENIAL RESOLUTION SPECIALIST [facility] levothyroxine 125 MCG tablet 125 mcg PO HS Qty: 90 3RF buspirone 30 mg tablet 30 mg PO BID 0RF Label Comments: TAKE 1 TABLET BY MOUTH TWICE DAILY dextroamphetamine-amphetamine 15 mg tablet 15 mg PO TID 0RF Label Comments: TAKE 1 TABLET BY MOUTH THREE TIMES DAILY FOR 28 DAYS. Emgality Pen 120 mg/mL pen injector SUBCUT 0RF Emgality Pen 120 mg/mL pen injector 120 mg SUBCUT Q4W 0RF lamotrigine 100 mg tablet 100 mg PO HS 0RF Label Comments: TAKE ONE TABLET BY MOUTH AT BEDTIME multivitamin Tablet 1 tab PO HS 0RF vitamin E 400 unit Tablet 400 unit PO HS 0RF cholecalciferol (vitamin D3) [Vitamin D3] 25 mcg (1,000 unit) Tablet,Chewable 1,000 unit PO BID 0RF Probiotic 10 billion cell Capsule 10 cell PO HS 0RF rizatriptan 10 mg Tablet 10 mg PO PRN PRN0RF atorvastatin 10 mg Tablet 10 mg PO DAILY 0RF acetaminophen 500 mg tablet 500 mg PO Q6H PRN PRN (Reason: pain) Qty: 40 3RF ibuprofen 600 mg tablet 600 mg PO TID PRN (Reason: pain) Qty: 60 3RF Discharge Instructions Instructions: Abdominal Pain (ED) Additional Instructions: Laboratory values do not reveal any obvious emergent process. Zofran as directed. Clear liquid diet, advance as tolerated. [id number] medicatio ns as directed for symptomatic control. Please watch for new or worsening symptoms and return to the ER for any concerns. Lastly, I would like you to contact your primary care provider on Thursday to discuss your ongoing symptoms and likely need for outpatient referral to GI specialty clinic Discharge Data Discharge Date/Time-TO BE ENTERED AT DEPARTURE: 07/27/21 21:00 Medical Decision Making This is a 45-year-old female, past medical history that includes morbid obesity, anxiety, depression, gluten intolerance, GERD, hypertension, hypothyroidism, migraines,, PTSD, cholecystectomy, presenting to the ER reporting abdominal pain primarily in the epigastric region, nausea, vomiting, diarrhea for the past 2 days, daughter at home was diagnosed with COVID 3 days ago. She states that she is fully vaccinated. She denies any fever, chest pain, shortness of breath, cough, back pain, dysuria, hematuria, vaginal bleeding or discharge, black tarry stools or bright red blood in her stools. Patient states that she is gluten intolerant, does not modify her diet, and has similar episodes of abdominal pain, nausea, vomiting, diarrhea at least every 2 months. She has never been evaluated by a GI specialist. Clinically she appears well, nontoxic, hemodynamically stable, abdomen certainly nonsurgical in nature. Plan is to obtain IV access, give IV fluid, Zofran, routine screening laboratory values and reassess. Patient reports that she does not take Pepto-Bismol as it causes her to be constipated, Imodium does not help, and neither does Tylenol. She has not taken any ndlc-kpp-[id number] medications for symptomatic control. Laboratory values reveal no evidence of leukocytosis or anemia. Electrolytes are unremarkable, normal renal function. Glucose 98, total bili 1.1 AST 13 ALT 32 alk phosphatase 53, albumin 3.7 lipase 30. Urinalysis reveals moderate leuk esterase, 20-50 white cells, many epithelial cells, likely contamination. She denies any dysuria. Clinically she does not complain of any UTI-like symptoms. Laboratory values are grossly unremarkable. I see no clear indication to initiate emergent imaging. Upon reevaluation patient reports significant improvement of her symptoms with IV Zofran. Plan is to give her a take-home pack of Zofran, provide a prescription to poultry picker tomorrow, and encouraged follow-up with her PCP on Thursday. Given she reports similar symptoms at least every 2 months, I strongly recommend outpatient follow-up through a GI specialist. Standard discharge and return precautions were provided. Patient understands, is agreeable to this plan, and has no additional questions or concerns upon discharge. This documentation was generated using [employer] system, please disregard any oddities of phrase or misspellings. Medical Records Medical records reviewed: Yes I reviewed the patient's medical records. Lab Data Lab results reviewed: Yes I reviewed the patient's lab results. Labs: Laboratory Tests Range/Units 07/27/21 07/27/21 07/27/21 18:25 18:28 18:28 WBC (4.4-10.8) 10^3/uL 7.79 RBC (3.93-5.22) 10^6/uL 4.82 Hgb (11.2-15.7) g/dL 13.9 Hct (36.0-46.0) % 43.8 MCV (80-95) fL 91 MCH (27.0-33.0) pg 28.8 MCHC (32.0-36.0) % 31.7 L RDW (11.7-14.6) % 14.0 Plt Count (130-400) 10^3/uL 194 MPV (8.0-11.0) fL 10.7 Immature Gran % 0.3 Neutrophils % 61.8 Lymphocytes % 25.7 Monocytes % 5.4 Eosinophils % 6.4 Basophils % 0.4 Nucleated RBC % (0.0-0.3) % 0.0 Absolute Neutrophils (1.2-6.7) 10^3/uL 4.82 Absolute Lymphocytes (1.2-3.4) 10^3/uL 2.00 Absolute Monocytes (0.1-0.8) 10^3/uL 0.42 Absolute Eosinophils (0.0-0.7) 10^3/uL 0.50 Absolute Basophils (0.0-0.2) 10^3/uL 0.03 Sodium (136-145) mmol/L 139 Potassium (3.5-5.1) mmol/L 4.1 Chloride (98-107) mmol/L 104 Carbon Dioxide (21.0-32.0) mmol/L 27.8 Anion Gap (3-11) mmol/L 7.2 BUN (7-18) mg/dL 13 Creatinine (0.55-1.02) mg/dL 0.9 Estimated GFR/1.73 m2 (mL/min/1.73m2) >= 60.00 Glucose (74-106) mg/dL 98 Calcium (8.5-10.1) mg/dL 8.7 Total Bilirubin (0.2-1.0) mg/dL 1.1 H AST (15-37) U/L 13 L ALT (14-59) U/L 32 Alkaline Phosphatase (46-116) U/L 53 Total Protein (6.4-8.2) g/dL 7.4 Albumin (3.4-5.0) g/dL 3.7 Lipase (73-393) U/L 30 Urine Color (Yellow) Urine Clarity (Clear) Urine pH (5-8) Ur Specific [place] (1.005-1.025) Urine Protein (Negative) mg/dL Urine Ketones (Negative) mg/dL Urine Blood (Negative) Urine Nitrite (Negative) Urine Bilirubin (Negative) Urine Urobilinogen (Up TO 0.2) EU/dL Ur Leukocyte Esterase (Negative) Urine RBC (0-2) HPF Urine WBC (0-5) HPF Ur Epithelial Cells (Negative) HPF Urine Crystals (Negative) HPF Urine Bacteria (Negative) HPF Urine Casts (Negative) LPF Urine Mucus (Negative) Urine Other (Negative) Ur Culture Indicated? Urine Glucose (Negative) mg/dL Stl C.difficile Tox PCR (Negative) COVID-19 Source Nasal/Nares SARS-CoV-2 (PCR) (Negative) Negative Range/Units 07/27/21 07/27/21 18:47 19:25 WBC (4.4-10.8) 10^3/uL RBC (3.93-5.22) 10^6/uL Hgb (11.2-15.7) g/dL Hct (36.0-46.0) % MCV (80-95) fL MCH (27.0-33.0) pg MCHC (32.0-36.0) % RDW (11.7-14.6) % Plt Count (130-400) 10^3/uL MPV (8.0-11.0) fL Immature Gran % Neutrophils % Lymphocytes % Monocytes % Eosinophils % Basophils % Nucleated RBC % (0.0-0.3) % Absolute Neutrophils (1.2-6.7) 10^3/uL Absolute Lymphocytes (1.2-3.4) 10^3/uL Absolute Monocytes (0.1-0.8) 10^3/uL Absolute Eosinophils (0.0-0.7) 10^3/uL Absolute Basophils (0.0-0.2) 10^3/uL Sodium (136-145) mmol/L Potassium (3.5-5.1) mmol/L Chloride (98-107) mmol/L Carbon Dioxide (21.0-32.0) mmol/L Anion Gap (3-11) mmol/L BUN (7-18) mg/dL Creatinine (0.55-1.02) mg/dL Estimated GFR/1.73 m2 (mL/min/1.73m2) Glucose (74-106) mg/dL Calcium (8.5-10.1) mg/dL Total Bilirubin (0.2-1.0) mg/dL AST (15-37) U/L ALT (14-59) U/L Alkaline Phosphatase (46-116) U/L Total Protein (6.4-8.2) g/dL Albumin (3.4-5.0) g/dL Lipase (73-393) U/L Urine Color (Yellow) Yellow Urine Clarity (Clear) Sl Cloudy Urine pH (5-8) 5.5 Ur Specific [place] (1.005-1.025) >= 1.030 H Urine Protein (Negative) mg/dL Negative Urine Ketones (Negative) mg/dL Negative Urine Blood (Negative) Negative Urine Nitrite (Negative) Negative Urine Bilirubin (Negative) Negative Urine Urobilinogen (Up TO 0.2) EU/dL 0.2 Ur Leukocyte Esterase (Negative) Moderate H Urine RBC (0-2) HPF 5-10 H Urine WBC (0-5) HPF 20-50 H Ur Epithelial Cells (Negative) HPF Many Urine Crystals (Negative) HPF Negative Urine Bacteria (Negative) HPF Moderate Urine Casts (Negative) LPF Negative Urine Mucus (Negative) Moderate Urine Other (Negative) Few Trichomonas Ur Culture Indicated? No/Sq. Contamination Urine Glucose (Negative) mg/dL Negative Stl C.difficile Tox PCR (Negative) Negative COVID-19 Source SARS-CoV-2 (PCR) (Negative) ECG Data Attestation: I personally reviewed and interpreted this ECG (s) as follows: Interpretation: Please see official report by Dr. Marquez. Sinus rhythm, ventricular rate of 75. No Stemi HPI General Mode of arrival: EMS . Date/Time Provider Initiated Documentation: 07/27/21 18:15 . Limitations to Documentation: no limitations . Information obtained by: patient and EMS . History of Present Illness 45 year old F presents to the emergency department with the chief complaint of abd pain, n/v/d, described as moderate, with intensity rated at 6. Quality is described as other (cramping), and is localized to the abdomen. Patient reports no radiation. Patient started experiencing this day(s) (2) and it has been intermittent. improves with No relieving factors improve symptom(s), Eating worsens symptoms . Patient notes nausea/vomiting; denies chest pain, cough, fever/chills and shortness of breath. Patient did receive the following treatments prior to arrival, none Related Data Home Medications Medication Instructions Recorded Confirmed omeprazole 20 mg capsule,delayed 40 mg PO HS #90 tab-cap 06/23/16 07/27/21 release venlafaxine 75 mg capsule,extended 75 mg PO HS tab-cap 09/08/16 07/27/21 release 24 hr levothyroxine 125 mcg tablet 125 mcg PO HS #90 tab-cap 09/22/16 07/27/21 buspirone 30 mg tablet 30 mg PO BID 04/09/20 07/27/21 dextroamphetamine-amphetamine 15 15 mg PO TID 04/09/20 07/27/21 mg tablet lamotrigine 100 mg tablet 100 mg PO HS 08/26/20 07/27/21 Lactobacillus acidophilus 10 10 cell PO HS 05/21/21 07/27/21 billion cell capsule (Probiotic) cholecalciferol (vitamin D3) 25 1,000 unit PO BID 05/21/21 07/27/21 mcg (1,000 unit) chewable tablet (Vitamin D3) multivitamin 1 tab PO HS 05/21/21 07/27/21 vitamin E 400 unit tablet 400 unit PO HS 05/21/21 07/27/21 acetaminophen 500 mg tablet 500 mg PO Q6H PRN PRN #40 tab 05/22/21 07/27/21 atorvastatin 10 mg tablet 10 mg PO DAILY 05/22/21 07/27/21 ibuprofen 600 mg tablet 600 mg PO TID PRN #60 tab 05/22/21 07/27/21 rizatriptan 10 mg tablet 10 mg PO PRN PRN 05/22/21 07/27/21 galcanezumab-gnlm 120 mg/mL 120 mg SUBCUT Q4W 07/27/21 07/27/21 subcutaneous pen injector (Emgality Pen) galcanezumab-gnlm 120 mg/mL mg SUBCUT 07/27/21 07/27/21 subcutaneous pen injector (Emgality Pen) ondansetron 4 mg disintegrating 4 mg PO TID PRN 3 Days #9 tab 07/27/21 tablet Previous Rx's Medication Instructions Recorded acetaminophen 500 mg tablet 500 mg PO Q6H PRN PRN #40 tab 05/22/21 ibuprofen 600 mg tablet 600 mg PO TID PRN #60 tab 05/22/21 ondansetron 4 mg disintegrating 4 mg PO TID PRN 3 Days #9 tab 07/27/21 tablet Allergies Allergy/AdvReac Type Severity Reaction Status Date / Time gabapentin AdvReac Intermediate drowsiness Verified 07/27/21 18:22 sulfamethoxazole AdvReac Unknown gi upset Verified 07/27/21 18:22 [From Bactrim] trimethoprim [From Bactrim] AdvReac Unknown gi upset Verified 07/27/21 18:22 tramadol AdvReac interfers Verified 07/27/21 18:22 w/ effexor General Stated Complaint: Nausea/Vomit/Diar HAL: 3 Review of Systems Constitutional Constitutional: Denies fever(s) Cardiovascular Cardiovascular: Denies chest pain and Denies dyspnea Respiratory Respiratory: Denies cough and Denies dyspnea Gastrointestinal Gastrointestinal: Reports abdominal pain, Reports diarrhea, Reports nausea and Reports vomiting Genitourinary Genitourinary: Denies dysuria and Denies vaginal discharge Musculoskeletal Musculoskeletal: Denies back pain Integumentary/Breasts Skin/Breast: Denies rash PFSH All Active Problems Abscess, dental (Acute) Abdominal pain (Acute) Ankle sprain (Acute) H/O pilonidal cyst (Chronic) Medical History Abscess, perianal with surgical intervention Adjustment disorder, unspecified (07/29/16) Anxiety Biliary Cholic Depression Gluten intolerance Heartburn Hydradenitis Hypertension Hypothyroid Migraine (04/11/11) Morbid obesity Nicotine dependence (12/19/13) Quit 11/2013 cold turkey (made her stomach hurt and +headaches) Obstructive sleep apnea syndrome (04/29/11) MILD. Sleep Study 2010 CPAP Other chronic pain (10/08/16) Patellar tendonitis (04/11/11) PTSD (post-traumatic stress disorder) Sleep apnea Surgical History Biopsy Duodenum (07/19/14) Dr. Crenshaw Cholecystectomy (09/13/14) Laparoscopic Dr. Crenshaw [facility] History of Achilles tendon repair History of bilateral tubal ligation History of removal of cyst per patient removed from right side of her head History of surgical removal of ganglion cyst Left carpal tunnel syndrome s/p left ECTR DOS: 05/22/21 Right carpal tunnel syndrome S/P R ECTR: 10/17/2020 Family History Mother Thyroid disorder Father No problems noted. Brother , Suicide at age 35. Mental disorder Suicide Brother No problems noted. Social History Smoking/Tobacco Use Status: Former Tobacco Use Quit Date: 06/21/20 Smoking risk assessment performed?: Yes Alcohol Intake: never Drug use: Daily Substance use type: marijuana Do you feel safe at home: Yes Do you feel safe in your relationship?: Yes Exam Const General: cooperative, healthy appearing, comfortable and no acute distress Orientation: alert, awake and oriented x3 HENMT Head: normal to inspection, normocephalic and atraumatic Face and sinus: normal facial exam Mouth: moist mucous membranes Eyes General: appearance normal, both eyes and all related structures Conjunctivae: conjunctivae normal Neck Neck: normal visual inspection, full ROM, trachea midline and supple Resp Effort & Inspection: normal respiratory effort and able to speak in complete sentences Auscultation: clear to auscultation bilaterally Cardio Rate: regular rate Rhythm: regular rhythm GI Inspection: normal to inspection and obesity Palpation: soft, not firm, no guarding, no pulsatile masses and tender in the epigastrum (mild) Auscultation: normal bowel sounds Back/Spine/Pelvis Back: No back tenderness Skin General skin exam: no rashes or lesions noted Neuro General: patient alert, patient awake, moves all extremities and no focal motor deficits Cognition: normal cognition Speech: speech normal Gait: normal gait Sensory Exam: no sensory deficits noted Psych Appearance: grossly normal Mental Status: mental status grossly normal Course Vital Signs Vital signs: Vital Signs Pulse 74 07/27/21 18:11 Blood Pressure 146/84 H 07/27/21 18:11 Temperature 36.4 C 07/27/21 18:15 Temperature Source Oral 07/27/21 18:15 Pulse 66 07/27/21 19:46 Pulse 76 07/27/21 19:50 Respiratory Rate 25 H 07/27/21 19:50 Respiratory Effort Non-Labored 07/27/21 18:18 Blood Pressure 148/86 H 07/27/21 19:46 Blood Pressure Mean 100 07/27/21 19:46 Blood Pressure Position Sitting 07/27/21 18:15 Pulse Oximetry 100 07/27/21 18:34 Oxygen Delivery Method Room Air 07/27/21 18:15 Oxygen Flow Rate 0 07/27/21 18:15 Pain Level 5 07/27/21 18:15 Lab/Test Results Lab/Test Results: Laboratory Tests Range/Units 07/27/21 07/27/21 07/27/21 18:25 18:28 18:28 WBC (4.4-10.8) 10^3/uL 7.79 RBC (3.93-5.22) 10^6/uL 4.82 Hgb (11.2-15.7) g/dL 13.9 Hct (36.0-46.0) % 43.8 MCV (80-95) fL 91 MCH (27.0-33.0) pg 28.8 MCHC (32.0-36.0) % 31.7 L RDW (11.7-14.6) % 14.0 Plt Count (130-400) 10^3/uL 194 MPV (8.0-11.0) fL 10.7 Immature Gran % 0.3 Neutrophils % 61.8 Lymphocytes % 25.7 Monocytes % 5.4 Eosinophils % 6.4 Basophils % 0.4 Nucleated RBC % (0.0-0.3) % 0.0 Absolute Neutrophils (1.2-6.7) 10^3/uL 4.82 Absolute Lymphocytes (1.2-3.4) 10^3/uL 2.00 Absolute Monocytes (0.1-0.8) 10^3/uL 0.42 Absolute Eosinophils (0.0-0.7) 10^3/uL 0.50 Absolute Basophils (0.0-0.2) 10^3/uL 0.03 Sodium (136-145) mmol/L 139 Potassium (3.5-5.1) mmol/L 4.1 Chloride (98-107) mmol/L 104 Carbon Dioxide (21.0-32.0) mmol/L 27.8 Anion Gap (3-11) mmol/L 7.2 BUN (7-18) mg/dL 13 Creatinine (0.55-1.02) mg/dL 0.9 Estimated GFR/1.73 m2 (mL/min/1.73m2) >= 60.00 Glucose (74-106) mg/dL 98 Calcium (8.5-10.1) mg/dL 8.7 Total Bilirubin (0.2-1.0) mg/dL 1.1 H AST (15-37) U/L 13 L ALT (14-59) U/L 32 Alkaline Phosphatase (46-116) U/L 53 Total Protein (6.4-8.2) g/dL 7.4 Albumin (3.4-5.0) g/dL 3.7 Lipase (73-393) U/L 30 Urine Color (Yellow) Urine Clarity (Clear) Urine pH (5-8) Ur Specific [place] (1.005-1.025) Urine Protein (Negative) mg/dL Urine Ketones (Negative) mg/dL Urine Blood (Negative) Urine Nitrite (Negative) Urine Bilirubin (Negative) Urine Urobilinogen (Up TO 0.2) EU/dL Ur Leukocyte Esterase (Negative) Urine Glucose (Negative) mg/dL Stl C.difficile Tox PCR (Negative) COVID-19 Source Nasal/Nares SARS-CoV-2 (PCR) (Negative) Negative Range/Units 07/27/21 07/27/21 18:47 19:25 WBC (4.4-10.8) 10^3/uL RBC (3.93-5.22) 10^6/uL Hgb (11.2-15.7) g/dL Hct (36.0-46.0) % MCV (80-95) fL MCH (27.0-33.0) pg MCHC (32.0-36.0) % RDW (11.7-14.6) % Plt Count (130-400) 10^3/uL MPV (8.0-11.0) fL Immature Gran % Neutrophils % Lymphocytes % Monocytes % Eosinophils % Basophils % Nucleated RBC % (0.0-0.3) % Absolute Neutrophils (1.2-6.7) 10^3/uL Absolute Lymphocytes (1.2-3.4) 10^3/uL Absolute Monocytes (0.1-0.8) 10^3/uL Absolute Eosinophils (0.0-0.7) 10^3/uL Absolute Basophils (0.0-0.2) 10^3/uL Sodium (136-145) mmol/L Potassium (3.5-5.1) mmol/L Chloride (98-107) mmol/L Carbon Dioxide (21.0-32.0) mmol/L Anion Gap (3-11) mmol/L BUN (7-18) mg/dL Creatinine (0.55-1.02) mg/dL Estimated GFR/1.73 m2 (mL/min/1.73m2) Glucose (74-106) mg/dL Calcium (8.5-10.1) mg/dL Total Bilirubin (0.2-1.0) mg/dL AST (15-37) U/L ALT (14-59) U/L Alkaline Phosphatase (46-116) U/L Total Protein (6.4-8.2) g/dL Albumin (3.4-5.0) g/dL Lipase (73-393) U/L Urine Color (Yellow) Yellow Urine Clarity (Clear) Sl Cloudy Urine pH (5-8) 5.5 Ur Specific [place] (1.005-1.025) >= 1.030 H Urine Protein (Negative) mg/dL Negative Urine Ketones (Negative) mg/dL Negative Urine Blood (Negative) Negative Urine Nitrite (Negative) Negative Urine Bilirubin (Negative) Negative Urine Urobilinogen (Up TO 0.2) EU/dL 0.2 Ur Leukocyte Esterase (Negative) Moderate H Urine Glucose (Negative) mg/dL Negative Stl C.difficile Tox PCR (Negative) Negative COVID-19 Source SARS-CoV-2 (PCR) (Negative) POC- Test(urine) Negative
[2021-07-27 20:18] LABS: Bacteria Moderate HPF (Negative); C & S Indicated? No/Sq. Contamination; Casts Negative LPF (Negative); Crystals Negative HPF (Negative); Epithelial Cells Many HPF (Negative); Mucus Moderate (Negative); WBC 20-50 HPF (0-5)
[2021-07-27] MEDS: Ondansetron O.D.T. 4 MG TABEF, 3 TABS/BTL PO (20:47)
== END 2021-07-27 21:00 | disposition home or self-care (01) ==
PROVIDERS: Emergency Provider Physician Assistant; PCP Nurse Practitioner Primary Care
DX: R10.9 Unspecified abdominal pain (principal); R11.2 Nausea with vomiting, unspecified; R10.13 Epigastric pain; R19.7 Diarrhea, unspecified; Z20.822 Contact with and (suspected) exposure to COVID-19
CPT/HCPCS: 36415; 80053; 81025; 83690; 87493; 87635; 93005; 96361; 96374; 99284; 81003; 81015; 85025; 93010; J2405

== ENCOUNTER 2022-10-27 17:33 | Emergency (ER) | payer MEDICAID, SELFPAY ==
[2022-10-27 17:36] VITALS: BP 148/100; PULSE 100; RESP 18; TEMP 37.1; O2SAT 99
--- NOTE | 2022-10-27 17:56 | W.ED.GENAD ---
Discharge Plan Disposition Patient Disposition: Home Discharge Details Clinical Impression: Paronychia of left index finger Primary Care Provider: ROSITA VERA ED Provider: Edenilson Shaver Home Meds and New Rx's Prescriptions: New cephalexin 500 mg capsule 500 mg PO QID 7 Days Qty: 28 0RF No Action omeprazole 20 MG capsule,delayed release(DR/EC) 40 mg PO HS Qty: 90 Rx Instructions: Take in the morning 30 mins before breakfast. venlafaxine 75 MG capsule,extended release 24hr 75 mg PO HS Rx Instructions: Keerthi Flanagan [employer] [facility] levothyroxine 125 MCG tablet 125 mcg PO HS Qty: 90 buspirone 30 mg tablet 30 mg PO BID Patient Comments: TAKE 1 TABLET BY MOUTH TWICE DAILY dextroamphetamine-amphetamine 15 mg tablet 15 mg PO TID Patient Comments: TAKE 1 TABLET BY MOUTH THREE TIMES DAILY FOR 28 DAYS. Emgality Pen 120 mg/mL pen injector SUBCUT Emgality Pen 120 mg/mL pen injector 120 mg SUBCUT Q4W lamotrigine 100 mg tablet 100 mg PO HS Patient Comments: TAKE ONE TABLET BY MOUTH AT BEDTIME multivitamin Tablet 1 tab PO HS vitamin E 400 unit Tablet 400 unit PO HS cholecalciferol (vitamin D3) [Vitamin D3] 25 mcg (1,000 unit) Tablet,Chewable 1,000 unit PO BID Probiotic 10 billion cell Capsule 10 cell PO HS Patient Comments: does not take rizatriptan 10 mg Tablet 10 mg PO PRN PRN Patient Comments: states does not take atorvastatin 10 mg Tablet 10 mg PO DAILY acetaminophen 500 mg tablet 500 mg PO Q6H PRN PRN (Reason: pain) Qty: 40 3RF ibuprofen 600 mg tablet 600 mg PO TID PRN (Reason: pain) Qty: 60 3RF Discharge Instructions Instructions: Paronychia (ED) Additional Instructions: At this time you have a mild infection starting at the base of your fingernail. As you have elected to hold off on incision and drainage here, please go home and soak the area in warm soapy water to help it drain naturally on its own. Please take the antibiotic as directed. It is been sent to your pharmacy on file. If you notice any worsening of your symptoms, or any new symptoms such as vomiting, diarrhea, fever, chills, shortness of breath, chest pain, numbness, weakness, or fainting , please return immediately to the emergency department for reevaluation. Please follow up with your primary care provider as soon as possible for reassessment and reevaluation. As always, it was a pleasure participating in your medical care today. Referrals: ROSITA VERA [Primary Care Provider] - Medical Decision Making 47-year-old female with a past medical history of high cholesterol, dental caries, who presents today for evaluation of left index finger pain. About 1 week ago the patient burned the tip of her finger. Over the last 7 days she has had mild swelling at the base of the nail with some mild bruising as well and mild pain. She denies any fever or chills. No redness traveling up the finger were in the hand. No other complaints at this time. Exam demonstrates evidence of mild paronychia on the index finger of the left hand. No traveling redness, no evidence of flexor or extensor tenosynovitis. No other concerning abnormality. Patient would benefit from an incision and drainage of the finger, however patient has refused at this time. We will start the patient on Keflex for treatment, and recommend soaking at home for natural drainage. Patient's tetanus is up-to-date. Discussed red flags for which to return. I have extensively reviewed the treatment plan and discharge instructions with the patient. I have addressed all patient concerns at this time. The patient was made aware of what symptoms to monitor for that would warrant a return to the emergency department. Discussed the plan with the patient, they demonstrate verbal understanding and agreement with our assessment and plan at this time. The documentation in this chart was dictated using [employer] dictation software. Please excuse any dictation errors. HPI General Date/Time Provider Initiated Documentation: 10/27/22 17:36. HPI Narrative: 47-year-old female with a past medical history of high cholesterol, dental caries, who presents today for evaluation of left index finger pain. About 1 week ago the patient burned the tip of her finger. Over the last 7 days she has had mild swelling at the base of the nail with some mild bruising as well and mild pain. She denies any fever or chills. No redness traveling up the finger were in the hand. No other complaints at this time. Related Data Home Medications Medication Instructions Recorded Confirmed omeprazole 20 mg capsule,delayed 40 mg PO HS #90 tab-caps 06/23/16 10/27/22 release venlafaxine 75 mg capsule,extended 75 mg PO HS 09/08/16 10/27/22 release 24 hr levothyroxine 125 mcg tablet 125 mcg PO HS #90 tab-caps 09/22/16 10/27/22 buspirone 30 mg tablet 30 mg PO BID 04/09/20 10/27/22 dextroamphetamine-amphetamine 15 15 mg PO TID 04/09/20 10/27/22 mg tablet lamotrigine 100 mg tablet 100 mg PO HS 08/26/20 10/27/22 Lactobacillus acidophilus 10 10 cell PO HS 05/21/21 07/27/21 billion cell capsule (Probiotic) cholecalciferol (vitamin D3) 25 1,000 unit PO BID 05/21/21 10/27/22 mcg (1,000 unit) chewable tablet (Vitamin D3) multivitamin 1 tab PO HS 05/21/21 10/27/22 vitamin E 400 unit tablet 400 unit PO HS 05/21/21 10/27/22 acetaminophen 500 mg tablet 500 mg PO Q6H PRN PRN pain #40 tabs 05/22/21 10/27/22 atorvastatin 10 mg tablet 10 mg PO DAILY 05/22/21 10/27/22 ibuprofen 600 mg tablet 600 mg PO TID PRN pain #60 tabs 05/22/21 10/27/22 rizatriptan 10 mg tablet 10 mg PO PRN PRN 05/22/21 07/27/21 galcanezumab-gnlm 120 mg/mL 120 mg subcut Q4W 07/27/21 10/27/22 subcutaneous pen injector (Emgality Pen) galcanezumab-gnlm 120 mg/mL mg subcut 07/27/21 07/27/21 subcutaneous pen injector (Emgality Pen) cephalexin 500 mg capsule 500 mg PO QID 7 days #28 caps 10/27/22 Previous Rx's Medication Instructions Recorded acetaminophen 500 mg tablet 500 mg PO Q6H PRN PRN pain #40 tabs 05/22/21 ibuprofen 600 mg tablet 600 mg PO TID PRN pain #60 tabs 05/22/21 cephalexin 500 mg capsule 500 mg PO QID 7 days #28 caps 10/27/22 Allergies Allergy/AdvReac Type Severity Reaction Status Date / Time gabapentin AdvReac Intermediate drowsiness Verified 10/27/22 17:41 sulfamethoxazole AdvReac Unknown gi upset Verified 10/27/22 17:41 [From Bactrim] trimethoprim [From Bactrim] AdvReac Unknown gi upset Verified 10/27/22 17:41 tramadol AdvReac interfers Verified 10/27/22 17:41 w/ effexor General Stated Complaint: Burn HAL: 4 Review of Systems All systems reviewed & are unremarkable except as noted in HPI and below PFSH All Active Problems Paronychia of left index finger (Acute) Ankle sprain (Acute) H/O pilonidal cyst (Chronic) Medical History Abscess, perianal with surgical intervention Adjustment disorder, unspecified (07/29/16) Anxiety Biliary Cholic Depression Gluten intolerance Heartburn Hydradenitis Hypertension Hypothyroid Migraine (04/11/11) Morbid obesity Nicotine dependence (12/19/13) Quit 11/2013 cold turkey (made her stomach hurt and +headaches) Obstructive sleep apnea syndrome (04/29/11) MILD. Sleep Study 2010 CPAP Other chronic pain (10/08/16) Patellar tendonitis (04/11/11) PTSD (post-traumatic stress disorder) Sleep apnea Surgical History Biopsy Duodenum (07/19/14) Dr. Crenshaw Cholecystectomy (09/13/14) Laparoscopic Dr. Crenshaw [facility] History of Achilles tendon repair History of bilateral tubal ligation History of removal of cyst per patient removed from right side of her head History of surgical removal of ganglion cyst Left carpal tunnel syndrome s/p left ECTR DOS: 05/22/21 Right carpal tunnel syndrome S/P R ECTR: 10/17/2020 Family History Mother Thyroid disorder Father No problems noted. Brother , Suicide at age 35. Mental disorder Suicide Brother No problems noted. Social History Smoking/Tobacco Use Status: Former Tobacco Use Quit Date: 06/21/20 Smoking risk assessment performed?: Yes Alcohol Intake: current Alcohol Intake frequency: holidays/special occasions only Drug use: Daily Substance use type: marijuana Housing: apartment Do you feel safe at home: Yes Do you feel safe in your relationship?: Yes Exam Narrative Exam Narrative: 1.Const: Well-nourished, Well-developed, appearing stated age 2.Eyes: PERRL, no conjunctival injection, and symmetrical lids. 3.ENT: Atraumatic external nose and ears. Moist MM. Neck: Symmetric, trachea midline, No thyromegaly. 4.CVS: +S1/S2, No murmurs or gallops. Peripheral pulses 2+ and equal in all extremities. Brisk capillary refill in all extremities. 5.RESP: Unlabored respiratory effort. Clear to auscultation bilaterally. No wheezes rales or rhonchi 6.GI: Soft, Nontender/Nondistended, No hepatosplenomegaly. No guarding or rebound. 7.MSK: Patient's left index finger demonstrates swelling at the base of the nail with small area of bruising. No redness extending up the dorsal or flexor aspect. No pain with passive or active flexion or extension of the finger to suggest tenosynovitis. No significant purulence. 8.Skin: Warm, Dry. No rashes or lesions. 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 Sensation grossly intact, no focal neurologic deficits. 10.Psych: (AAO) x3. Appropriate mood and affect Course Vital Signs Vital signs: Vital Signs Temperature 37.1 C 10/27/22 17:36 Pulse 100 H 10/27/22 17:36 Respiratory Rate 18 10/27/22 17:36 Blood Pressure 148/100 H 10/27/22 17:36 Pulse Oximetry 99 10/27/22 17:36 Temperature 37.1 C 10/27/22 17:36 Temperature Source Skin 10/27/22 17:36 Pulse 100 H 10/27/22 17:36 Respiratory Rate 18 10/27/22 17:36 Respiratory Effort Normal, Non-Labored 10/27/22 17:44 Blood Pressure 148/100 H 10/27/22 17:36 Blood Pressure Position Sitting 10/27/22 17:36 Pulse Oximetry 99 10/27/22 17:36 Oxygen Delivery Method Room Air 10/27/22 17:36 Oxygen Flow Rate 0 10/27/22 17:36 Pain Level 3 10/27/22 17:45 PAWSS Have you Been Recently Intoxicated or Drunk Within the Last 30 days?: No Have you Ever Experienced Previous Episodes of Alcohol Withdrawal?: No Have you ever Experienced Withdrawal Seizures?: No Have you ever Experienced Delirium Tremens(DT)s?: No Have you ever undergone Alcohol Rehabilitation Treatment (i.e, inpt ot outpatient treatment programs)?: No Have you ever Experienced Blackouts?: No Have you ever Combined Alcohol with other Downers within the last 90 days?: No Have you ever Combined Alcohol with any other Substance of Abuse during the last 90 days?: No Positive Blood Alcohol level on Presentation? [PCS.BAL]: No Evidence of Increased Autonomic Activity (i.e. HR>120, tremor, sweating, agitation, nausea)?: No Result: 0
[2022-10-27 18:00] VITALS: BP 148/100; PULSE 89; RESP 18; TEMP 37.1; O2SAT 99
[2022-10-27] MEDS: Cephalexin 500 MG CAP, 4 CAPS/BTL PO (18:03)
== END 2022-10-27 18:08 | disposition home or self-care (01) ==
PROVIDERS: Emergency Provider Student in an Organized Health Care Education/Training Program; PCP Nurse Practitioner Primary Care
DX: L03.012 Cellulitis of left finger (principal)
CPT/HCPCS: 99283; 99284

== ENCOUNTER 2023-02-16 15:24 | Outpatient (REF) | payer MEDICAID, SELFPAY ==
[2023-02-16 14:33] LABS: HCT 46.4 % (36.0-46.0); HGB 15.1 g/dL (11.2-15.7); MCH 29.5 pg (27.0-33.0); MCHC 32.5 % (32.0-36.0); MCV 91 fL (80-95); Platelet Count 212 10^3/uL (130-400); RBC 5.11 10^6/uL (3.93-5.22); RDW 12.9 % (11.7-14.6); RDW-SD 42.9 fL; WBC 5.93 10^3/uL (4.4-10.8)
[2023-02-16 14:43] LABS: Iron 53 ug/dL (50-170); Total Iron Binding Capacity 348 ug/dL (250-450); Transferrin Sat 15 % (15-50)
[2023-02-16 15:06] LABS: Vitamin D 25 Total 27.7 ng/mL (30-100)
[2023-02-16 15:09] LABS: ALT 32 U/L (14-59); AST 16 U/L (15-37); Albumin 3.9 g/dL (3.4-5.0); Alkaline Phosphatase 54 U/L (46-116); Anion Gap 6.2 mmol/L (3-11); BUN 14 mg/dL (7-18); Bilirubin, Total 1.1 mg/dL (0.2-1.0); CO2 32.8 mmol/L (21.0-32.0); CREATININE 0.8 mg/dL (0.55-1.02); Calcium 9.8 mg/dL (8.5-10.1); Calculated LDL 61 mg/dL (<100); Chloride 104 mmol/L (98-107); Cholesterol 138 mg/dL (<200); Estimated GFR 92.54 (mL/min/1.73m2); Ferritin 41 ng/mL (8-252); Glucose 106 mg/dL (74-106); HDL Cholesterol 55 mg/dL (40-60); Potassium 4.5 mmol/L (3.5-5.1); Sodium 143 mmol/L (136-145); TSH (W/Ref FT4) 0.99 uIU/mL (0.36-3.74); Total Protein 7.2 g/dL (6.4-8.2); Triglyceride 110 mg/dL (<150)
[2023-02-16 15:15] LABS: Hemoglobin A1C 5.4 % (<5.7)
== END 2023-02-16 15:25 | disposition home or self-care (01) ==
LOC: NCHCN 15:24
PROVIDERS: PCP Nurse Practitioner Primary Care; Visit Provider Family Medicine
DX: E03.9 Hypothyroidism, unspecified (principal); E78.5 Hyperlipidemia, unspecified; N18.9 Chronic kidney disease, unspecified; K74.60 Unspecified cirrhosis of liver
CPT/HCPCS: 80053; 80061; 82306; 85027; 82728; 83036; 83540; 83550; 84443

== ENCOUNTER → 2023-02-17 02:34 | Outpatient (CLI) | payer MEDICAID, SELFPAY ==
--- NOTE | 2023-02-17 | DI.US_ITS ---
Exam(s) US ABDOMEN LIMITED EXAM: US ABDOMEN LIMITED CLINICAL HISTORY: H/O CIRRHOSIS,RUQ PAIN,S/P CHOLECYSTECTOMY,F/U CIRRHOSIS TECHNIQUE: Ultrasound abdomen performed using standard protocol. COMPARISON: US US ABDOMEN from 10/28/2019 FINDINGS: There is no ascites evident. LIVER: Mildly prominent size. No focal hepatic lesions. No obvious steatosis. GALLBLADDER/BILIARY: Gallbladder is again noted be surgically absent. The common hepatic duct ismildly prominent, measuring 7mm at the level of brisa hepatis. Probably re lated to post cholecystectomy status. PANCREAS: Only partially visualized due to overlying bowel gas. However, no obvious mass evident in the pancreatic head and neck and partially visualized body. Pancreatic duct not dilated. RIGHT KIDNEY:No evidence of solid mass, calculus, nor hydronephrosis. No cortical cysts evident. IMPRESSION: 1. Gallbladder is again noted be surgically absent. CBD diameter slightly prominent but probably re lated post cholecystectomy status. 2. Pancreas only partially visualized due to overlying bowel gas. No obvious masses. 3. There is no ascites. DATA REPOSITORY:
== END ==
PROVIDERS: PCP Nurse Practitioner Primary Care; Visit Provider Family Medicine
DX: Z90.49 Acquired absence of other specified parts of digestive tract (principal); K74.60 Unspecified cirrhosis of liver
CPT/HCPCS: 76705

== ENCOUNTER 2023-04-09 12:20 | Outpatient (CLI) | payer MEDICAID, SELFPAY ==
--- NOTE | 2023-04-09 11:15 | DI.RAD_ITS ---
Exam(s) XR ANKLE RT COMPLETE EXAM: XR ANKLE RT COMPLETE CLINICAL HISTORY: ankle/foot pain. TECHNIQUE: 2D digital imaging was performed. Three views. COMPARISON: CR XR ANKLE RT COMPLETE from 04/09/2020 FINDINGS: BONES: No acute fracture is present. No bony destructive lesion is seen. Multiple chronic appearing bony densities are again noted near the medial malleolus. There is spurring from the medial malleolu s well as anterior tibia endotracheal aspect of the lateral malleolus. Spurring also noted at dorsal aspect of the navicular. Enthesophyte at Achilles insertion JOINTS: The ankle mortise is normally aligned. The tibiotalar joint space is narrowed medially. Na rrowing and spurring at the posterior talocalcaneal joint SOFT TISSUE: Normal. IMPRESSION: Degenerative changes, greater at the medial tibiotalar joint. DATA REPOSITORY: RADIATION DOSE DELIVERED:
== END 2023-04-09 12:21 | disposition home or self-care (01) ==
LOC: DIORS 12:31
PROVIDERS: PCP Nurse Practitioner Primary Care; Visit Provider Physician Assistant
DX: M25.571 Pain in right ankle and joints of right foot (principal)
CPT/HCPCS: 73610

== ENCOUNTER 2024-02-23 16:57 | Outpatient (REF) | payer MEDICAID, SELFPAY ==
[2024-02-23 20:07] LABS: *AMPHETAMINES SCREEN URINE Positive (Negative); *BARBITURATES SCREEN URINE Negative (Negative); *BENZODIAZEPINES SCREEN URINE Positive (Negative); Cannabinoids THC Positive (Negative); Cocaine Screen,Urine Negative (Negative); METHADONE URINE SCREEN Negative (Negative); OPIATES URINE SCREEN Negative (Negative)
[2024-02-23 20:08] LABS: Tricyclic Antidepressants Negative (Negative)
== END 2024-02-23 16:58 | disposition home or self-care (01) ==
LOC: LBN 16:57
PROVIDERS: PCP Nurse Practitioner Primary Care; Visit Provider Nurse Practitioner Psychiatric/Mental Health
DX: Z79.899 Other long term (current) drug therapy (principal); F12.20 Cannabis dependence, uncomplicated; F33.1 Major depressive disorder, recurrent, moderate
CPT/HCPCS: 80307

== ENCOUNTER 2024-05-10 15:14 | Outpatient (REF) | payer MEDICAID, SELFPAY ==
[2024-05-10 15:50] LABS: Hemoglobin A1C 5.4 % (<5.7)
[2024-05-10 18:00] LABS: ALT 28 U/L (14-59); AST 20 U/L (15-37); Albumin 4.1 g/dL (3.4-5.0); Alkaline Phosphatase 66 U/L (46-116); Anion Gap 11.5 mmol/L (3-11); BUN 18 mg/dL (7-18); Bilirubin, Total 1.21 mg/dL (0.2-1.0); CO2 26.5 mmol/L (21.0-32.0); Calcium 10.1 mg/dL (8.5-10.1); Calculated LDL 131 mg/dL (<100); Chloride 102 mmol/L (98-107); Cholesterol 238 mg/dL (<200); Estimated GFR 70.36 (mL/min/1.73m2); Glucose 91 mg/dL (74-106); HDL Cholesterol 82 mg/dL (40-60); Potassium 4.6 mmol/L (3.5-5.1); Sodium 140 mmol/L (136-145); TSH (W/Ref FT4) 2.28 uIU/mL (0.36-3.74); Total Protein 7.6 g/dL (6.4-8.2); Triglyceride 127 mg/dL (<150); Vitamin D 25 Total 28.8 ng/mL (30-100)
== END 2024-05-10 15:15 | disposition home or self-care (01) ==
LOC: NCHCN 15:14
PROVIDERS: PCP Nurse Practitioner Primary Care; Visit Provider Family Medicine
DX: Z68.42 Body mass index [BMI] 45.0-49.9, adult (principal); E78.5 Hyperlipidemia, unspecified; E03.9 Hypothyroidism, unspecified; K75.81 Nonalcoholic steatohepatitis (NASH); E55.9 Vitamin D deficiency, unspecified; E66.9 Obesity, unspecified
CPT/HCPCS: 80053; 80061; 82306; 83036; 84443

== ENCOUNTER 2025-03-02 15:47 | Outpatient (REF) | payer MEDICAID, SELFPAY ==
[2025-03-02 21:51] LABS: ALT 20 U/L (10-49); AST 17 U/L (<34); Albumin 4.5 g/dL (3.2-5.0); Alkaline Phosphatase 59 U/L (46-116); Anion Gap 6.3 mmol/L (3-11); BUN 12 mg/dL (9-23); Bilirubin, Total 0.8 mg/dL (0.2-1.2); CO2 31.7 mmol/L (20.0-31.0); Calcium 10.2 mg/dL (8.3-10.6); Chloride 104 mmol/L (98-107); Cholesterol 172 mg/dL (<200); Glucose 87 mg/dL (74-106); HDL Cholesterol 69 mg/dL (>40); Potassium 4.7 mmol/L (3.5-5.1); Sodium 142 mmol/L (136-145); TSH (W/Ref FT4) 0.54 uIU/mL (0.55-4.78); Total Protein 7.3 g/dL (5.7-8.2)
[2025-03-03 18:57] LABS: HIV-1/2 Ag & Ab Screen Negative (Negative)
[2025-03-03 20:52] LABS: Hepatitis C Ab w Rflx HCV PCR Negative (Negative)
== END 2025-03-02 15:48 | disposition home or self-care (01) ==
LOC: NCHCN 15:47
PROVIDERS: PCP Family Medicine; Visit Provider Family Medicine
DX: Z11.59 Encounter for screening for other viral diseases (principal); E03.9 Hypothyroidism, unspecified; Z11.4 Encounter for screening for human immunodeficiency virus [HIV]; E78.5 Hyperlipidemia, unspecified
CPT/HCPCS: 80053; 80061; 86803; 87389; 84439; 84443

== ENCOUNTER → 2025-03-08 00:22 | Outpatient (CLI) | payer MEDICAID, SELFPAY ==
--- NOTE | 2025-03-08 | DI.RAD_ITS ---
Exam(s) XR LUMBAR SPINE COMPLETE EXAM: XR LUMBAR SPINE COMPLETE CLINICAL HISTORY: STRAIN LUMBAR SPINE, [id number]. TECHNIQUE: 2D digital imaging was performed. Five views. COMPARISON: No exams were available for comparison FINDINGS: BONES: No fracture or destructive lesion. Vertebral body heights are maintained. There are facet hypertrophy identified, mild at L4-5 and more severe at L5-S1 . DISKS: Mild L5-S1 disc space narrowing. The remaining intervertebral disc spaces are maintained. ALIGNMENT: Mild degenerative spondylolisthesis at L5-S1. SOFT TISSUE: Normal. IMPRESSION: Degenerative disc changes and facet degenerative changes as well as mild spondylolisthesis at L5-S1. DATA REPOSITORY: RADIATION DOSE DELIVERED:
== END ==
PROVIDERS: PCP Family Medicine; Visit Provider Family Medicine
DX: S39.012A Strain of muscle, fascia and tendon of lower back, initial encounter (principal); M51.360 Other intervertebral disc degeneration, lumbar region with discogenic back pain only
CPT/HCPCS: 72110